=== PATIENT | male | born 1965 | race Two or more races ===

== ENCOUNTER 2017-06-15 13:36 | Inpatient (IN) | payer MEDICAID, OTHER ==
[~2017-06-15] VITALS: Ht 182.9 cm; Wt 88.7 kg
[2017-06-15] MEDS ORDERED: LORA10TA3 PO (13:48)
[2017-06-15] MEDS ORDERED: OXCA300T PO (14:03)
[2017-06-15] MEDS ORDERED: HALO2TAB PO (14:03)
[2017-06-15] MEDS ORDERED: GABA-586 PO (14:03)
[2017-06-15] MEDS ORDERED: ACET325T9 PO (14:03)
[2017-06-15] MEDS ORDERED: OLAN15TA3 PO (14:03)
[2017-06-15] MEDS ORDERED: DOCU100C28 PO (14:03)
[2017-06-15] MEDS ORDERED: OLAN5TAB5 PO (14:03)
[2017-06-15] MEDS ORDERED: OXCA600T PO (14:03)
[2017-06-15 16:59] VITALS: BP 113/72
[2017-06-15] MEDS: HALOPERIDOL 2 MG TABLET PO SCH (18:17)
[2017-06-15] MEDS ORDERED: ACETAMINOPHEN 325 MG TABLET PO PRN (18:30)
[2017-06-15] MEDS ORDERED: DOCUSATE SODIUM 100 MG CAPSULE PO PRN (18:30)
--- NOTE | 2017-06-15 19:04 | PDOC ---
Exam Note: Ronaldo Note: Please also refer to the separate dictated note~for this date of service dictated separately.~Patient seen individually. Discussed the patient with Nursing staff reviewed the chart.~Reviewed interim history and current functioning. Reviewed vital signs,~Labs/ Radiology~and current medications noted below. Continue current treatment with the changes noted in the dictated addendum note Assessment: Vital Signs: Vital Signs Date Time Temp Pulse Resp B/P (MAP) Pulse Ox O2 Delivery O2 Flow Rate FiO2 06/15/17 16:59 98.2 78 18 113/72 (86) 94 Current Medications: Meds: Current Medications Haloperidol (Haldol) 2 mg BID@0700,1900 PO Last administered on 06/15/17t 18: 17; Start 06/15/17 at 19:00 Olanzapine (ZyPREXA ZYDIS) 5 mg DAILY@1300 PO ; Start 06/16/17 at 13:00 Oxcarbazepine (Trileptal) 300 mg DAILY PO ; Start 06/16/17 at 09:00 Olanzapine (ZyPREXA) 15 mg QHS PO ; Start 06/15/17 at 21:00 Oxcarbazepine (Trileptal) 600 mg QHS PO ; Start 06/15/17 at 21:00 Acetaminophen (Tylenol) 650 mg PRN Q4HRS PRN PO PAIN / TEMP; Start 06/15/17 at 18:30 Docusate Sodium (Colace) 100 mg PRN Q12HR PRN PO CONSTIPATION; Start 06/15/17 at 18:30 Gabapentin (Neurontin) 300 mg TID PO ; Start 06/15/17 at 21:00 Active Scripts Active Reported Docusate Sodium 100 Mg Capsule 100 Mg PO PRN Q12HR PRN Tylenol (Acetaminophen) 325 Mg Tablet 650 Mg PO PRN Q4HRS PRN Gabapentin 300 Mg Capsule 300 Mg PO TID Haloperidol 2 Mg Tablet 2 Mg PO BID@ 0700,1900 Zyprexa Zydis (Olanzapine) 5 Mg Tab.rapdis 5 Mg PO DAILY@1300 Zyprexa (Olanzapine) 15 Mg Tablet 15 Mg PO QHS Oxcarbazepine 300 Mg Tablet 300 Mg PO DAILY Oxcarbazepine 600 Mg Tablet 600 Mg PO QHS Loratadine 10 Mg Tablet 10 Mg PO DAILY I have reviewed the current psychotropics carefully including drug interactions. Risk benefit ratio favors no change other than as noted in my dictated progress note. Diagnosis: Problems: (1) Bipolar affective, mixed, sev w/ psych (2) Hepatitis C (3) Impulse control disorder (4) Schizoaffective disorder, chronic condition with acute exacerbation (5) Schizophrenia, disorganized, subchronic with acute exacerbation ERICKA RECINOS MD Jun 15, 2017 19:04
[2017-06-15] MEDS: GABAPENTIN 300 MG CAPSULE. PO SCH (19:42)
[2017-06-15] MEDS: OLANZapine 7.5 MG TABLET PO SCH (19:43)
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
[2017-06-16] MEDS: HALOPERIDOL 2 MG TABLET PO SCH ×2 (05:53→17:08)
[2017-06-16 06:08] VITALS: BP 126/63
[2017-06-16 07:32] LABS: BASO % 0 % (0-3); EOS # 0.3 x10^3/uL (0.0-0.7); EOS % 4 % (0-3); HEMATOCRIT 49.4 % (39.0-53.0); HEMOGLOBIN 17.1 g/dL (13.0-17.5); LYMPH # 1.8 x10^3/uL (1.0-4.8); LYMPH % 23 % (24-48); MEAN CORPUSCULAR HEMOGLOBIN 32 pg (25-35); MEAN CORPUSCULAR HGB CONC 35 g/dL (31-37); MEAN CORPUSCULAR VOLUME 93 fL (79-100); MONO # 0.7 x10^3/uL (0.0-1.1); MONO % 9 % (0-9); NEUT # 5.1 x10^3uL (1.8-7.7); NEUT % 65 % (31-73); PLATELET COUNT 142 x10^3/uL (140-400); RED BLOOD COUNT 5.31 x10^6/uL (4.30-5.70); RED CELL DISTRIBUTION WIDTH 13.1 % (11.5-14.5); WHITE BLOOD COUNT 7.9 x10^3/uL (4.0-11.0)
[2017-06-16 07:45] LABS: ALBUMIN 3.6 g/dL (3.4-5.0); ALBUMIN/GLOBULIN RATIO 0.9 (1.0-1.7); CALCIUM 8.3 mg/dL (8.5-10.1); CREATININE 0.9 mg/dL (0.7-1.3); GFR 88.3; MAGNESIUM 1.7 mg/dL (1.8-2.4); POTASSIUM 3.7 mmol/L (3.5-5.1); TOTAL BILIRUBIN 0.9 mg/dL (0.2-1.0); TOTAL PROTEIN 7.5 g/dL (6.4-8.2)
[2017-06-16] MEDS: GABAPENTIN 300 MG CAPSULE. PO SCH ×3 (09:39→19:11)
[2017-06-16 10:16] LABS: THYROID STIM HORMONE (TSH) 1.543 uIU/mL (0.358-3.740)
[2017-06-16] MEDS: MAGNESIUM OXIDE 400 MG TABLET PO SCH (11:54)
[2017-06-16 12:16] LABS: BACTERIA,URINE 0 /HPF (0-FEW); BILIRUBIN,URINE NEG (NEG); CLARITY,URINE CLEAR; COLOR,URINE YELLOW; GLUCOSE,URINE NEG (NEG); NITRITE,URINE NEG (NEG); RBC,URINE 0 /HPF (0-2); SQUAMOUS EPITHELIAL CELL,UR OCC /LPF; UROBILINOGEN,URINE 0.2 mg/dL (0.2 mg/dL); WBC,URINE 0 /HPF (0-4)
[2017-06-16 15:58] VITALS: BP 123/80
[2017-06-16] MEDS: OLANZapine 7.5 MG TABLET PO SCH (19:11)
--- NOTE | 2017-06-16 20:23 | PDOC ---
Exam Note: Ronaldo Note: Please also refer to the separate dictated note~for this date of service dictated separately.~Patient seen individually. Discussed the patient with Nursing staff reviewed the chart.~Reviewed interim history and current functioning. Reviewed vital signs,~Labs/ Radiology~and current medications noted below. Continue current treatment with the changes noted in the dictated addendum note Assessment: Vital Signs: Vital Signs Date Time Temp Pulse Resp B/P (MAP) Pulse Ox O2 Delivery O2 Flow Rate FiO2 06/16/17 15:58 98.5 82 20 123/80 (94) 91 I&O Intake and Output 06/16/17 07:00 Intake Total 480 ml Balance 480 ml Intake Oral 480 ml Labs: Laboratory Tests Test 06/16/17 07:13 06/16/17 12:00 White Blood Count 7.9 x10^3/uL (4.0-11.0) Red Blood Count 5.31 x10^6/uL (4.30-5.70) Hemoglobin 17.1 g/dL (13.0-17.5) Hematocrit 49.4 % (39.0-53.0) Mean Corpuscular Volume 93 fL (79-100) Mean Corpuscular Hemoglobin 32 pg (25-35) Mean Corpuscular Hemoglobin Concent 35 g/dL (31-37) Red Cell Distribution Width 13.1 % (11.5-14.5) Platelet Count 142 x10^3/uL (140-400) Neutrophils (%) (Auto) 65 % (31-73) Lymphocytes (%) (Auto) 23 % (24-48) L Monocytes (%) (Auto) 9 % (0-9) Eosinophils (%) (Auto) 4 % (0-3) H Basophils (%) (Auto) 0 % (0-3) Neutrophils # (Auto) 5.1 x10^3uL (1.8-7.7) Lymphocytes # (Auto) 1.8 x10^3/uL (1.0-4.8) Monocytes # (Auto) 0.7 x10^3/uL (0.0-1.1) Eosinophils # (Auto) 0.3 x10^3/uL (0.0-0.7) Basophils # (Auto) 0.0 x10^3/uL (0.0-0.2) Sodium Level 139 mmol/L (136-145) Potassium Level 3.7 mmol/L (3.5-5.1) Chloride Level 104 mmol/L (98-107) Carbon Dioxide Level 27 mmol/L (21-32) Anion Gap 8 (6-14) Blood Urea Nitrogen 11 mg/dL (8-26) Creatinine 0.9 mg/dL (0.7-1.3) Estimated GFR (Cockcroft-Gault) 88.3 BUN/Creatinine Ratio 12 (6-20) Glucose Level 141 mg/dL (70-99) H Calcium Level 8.3 mg/dL (8.5-10.1) L Magnesium Level 1.7 mg/dL (1.8-2.4) L Iron Level 172 ug/dL (65-175) Total Iron Binding Capacity 279 ug/dL (250-450) Iron Saturation 62 % (15-34) H Total Bilirubin 0.9 mg/dL (0.2-1.0) Aspartate Amino Transferase (AST) 39 U/L (15-37) H Alanine Aminotransferase (ALT) 71 U/L (16-63) H Alkaline Phosphatase 85 U/L (46-116) Total Protein 7.5 g/dL (6.4-8.2) Albumin 3.6 g/dL (3.4-5.0) Albumin/Globulin Ratio 0.9 (1.0-1.7) L Triglycerides Level 64 mg/dL (0-150) Cholesterol Level 143 mg/dL (0-200) LDL Cholesterol, Calculated 75 mg/dL (0-100) VLDL Cholesterol, Calculated 12 mg/dL (0-40) Non-HDL Cholesterol Calculated 87 mg/dL (0-129) HDL Cholesterol 56 mg/dL (40-60) Cholesterol/HDL Ratio 2.0 Thyroid Stimulating Hormone (TSH) 1.543 uIU/mL (0.358-3.740) Rapid Plasma Reagin Non reactive (Non Reactive) Urine Collection Type Unknown Urine Color Yellow Urine Clarity Clear Urine pH 7.0 Urine Specific [place] 1.015 Urine Protein Neg (NEG-TRACE) Urine Glucose (UA) Neg mg/dL (NEG) Urine Ketones (Stick) Neg mg/dL (NEG) Urine Blood Neg (NEG) Urine Nitrite Neg (NEG) Urine Bilirubin Neg (NEG) Urine Urobilinogen Dipstick 0.2 mg/dL (0.2 mg/dL) Urine Leukocyte Esterase Neg (NEG) Urine RBC 0 /HPF (0-2) Urine WBC 0 /HPF (0-4) Urine Squamous Epithelial Cells Occ /LPF Urine Bacteria 0 /HPF (0-FEW) Urine Mucus Slight /LPF Current Medications: Meds: Current Medications Haloperidol (Haldol) 2 mg BID@0700,1900 PO Last administered on 06/16/17 17: 08; Start 06/15/17 at 19:00 Olanzapine (ZyPREXA ZYDIS) 5 mg DAILY@1300 PO Last administered on 06/16/17 13:32; Start 06/16/17 at 13:00 Oxcarbazepine (Trileptal) 300 mg DAILY PO Last administered on 06/16/17 09:39 ; Start 06/16/17 at 09:00 Olanzapine (ZyPREXA) 15 mg QHS PO Last administered on 06/16/17 19:11; Start 06/15/17 at 21:00 Oxcarbazepine (Trileptal) 600 mg QHS PO Last administered on 06/16/17 19:11; Start 06/15/17 at 21:00 Acetaminophen (Tylenol) 650 mg PRN Q4HRS PRN PO PAIN / TEMP; Start 06/15/17 at 18:30 Docusate Sodium (Colace) 100 mg PRN Q12HR PRN PO CONSTIPATION; Start 06/15/17 at 18:30 Gabapentin (Neurontin) 300 mg TID PO Last administered on 06/16/17 19:11; Start 06/15/17 at 21:00 Magnesium Oxide (Magnesium Oxide) 400 mg DAILYBFRLUN PO Last administered on 11:54; Start 06/16/17 at 11:30 Active Scripts Active Reported Docusate Sodium 100 Mg Capsule 100 Mg PO PRN Q12HR PRN Tylenol (Acetaminophen) 325 Mg Tablet 650 Mg PO PRN Q4HRS PRN Gabapentin 300 Mg Capsule 300 Mg PO TID Haloperidol 2 Mg Tablet 2 Mg PO BID@ 0700,1900 Zyprexa Zydis (Olanzapine) 5 Mg Tab.rapdis 5 Mg PO DAILY@1300 Zyprexa (Olanzapine) 15 Mg Tablet 15 Mg PO QHS Oxcarbazepine 300 Mg Tablet 300 Mg PO DAILY Oxcarbazepine 600 Mg Tablet 600 Mg PO QHS Loratadine 10 Mg Tablet 10 Mg PO DAILY I have reviewed the current psychotropics carefully including drug interactions. Risk benefit ratio favors no change other than as noted in my dictated progress note. Diagnosis: Problems: (1) Schizophrenia, disorganized, subchronic with acute exacerbation (2) Schizoaffective disorder, chronic condition with acute exacerbation (3) Bipolar affective, mixed, sev w/ psych (4) Impulse control disorder ERICKA RECINOS MD Jun 16, 2017 20:23
[2017-06-17 02:06] LABS: HEMOGLOBIN A1C 5.3 % (4.8-5.6)
[2017-06-17 06:07] LABS: THYROXINE 7.1 ug/dL (4.5-12.0)
[2017-06-17 06:17] VITALS: BP 108/68
[2017-06-17] MEDS: HALOPERIDOL 2 MG TABLET PO SCH ×2 (06:20→18:23)
[2017-06-17] MEDS: GABAPENTIN 300 MG CAPSULE. PO SCH ×3 (08:09→19:51)
[2017-06-17] MEDS: MAGNESIUM OXIDE 400 MG TABLET PO SCH (11:53)
[2017-06-17 16:06] VITALS: BP 167/71
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
[2017-06-17] MEDS: OLANZapine 7.5 MG TABLET PO SCH (19:51)
--- NOTE | 2017-06-17 20:02 | PDOC ---
Exam Note: Ronaldo Note: Please also refer to the separate dictated note~for this date of service dictated separately.~Patient seen individually. Discussed the patient with Nursing staff reviewed the chart.~Reviewed interim history and current functioning. Reviewed vital signs,~Labs/ Radiology~and current medications noted below. Continue current treatment with the changes noted in the dictated addendum note Assessment: Vital Signs: Vital Signs Date Time Temp Pulse Resp B/P (MAP) Pulse Ox O2 Delivery O2 Flow Rate FiO2 06/17/17 16:06 97.1 76 20 167/71 (103) 92 06/17/17 06:17 Room Air I&O Intake and Output 06/17/17 07:00 Intake Total 1200 ml Balance 1200 ml Intake Oral 1200 ml Current Medications: Meds: Current Medications Haloperidol (Haldol) 2 mg BID@0700,1900 PO Last administered on 06/17/17 18:23 ; Start 06/15/17 at 19:00 Olanzapine (ZyPREXA ZYDIS) 5 mg DAILY@1300 PO Last administered on 06/17/17 13: 04; Start 06/16/17 at 13:00 Oxcarbazepine (Trileptal) 300 mg DAILY PO Last administered on 06/17/17 08:09; Start 06/16/17 at 09:00; Stop 06/17/17 at 19:05; Status DC Olanzapine (ZyPREXA) 15 mg QHS PO Last administered on 06/17/17 19:51; Start 06/15/17 at 21:00 Oxcarbazepine (Trileptal) 600 mg QHS PO Last administered on 06/16/17t 19:11; Start 06/15/17 at 21:00; Stop 06/17/17 at 19:05; Status DC Acetaminophen (Tylenol) 650 mg PRN Q4HRS PRN PO PAIN / TEMP; Start 06/15/17 at 18:30 Docusate Sodium (Colace) 100 mg PRN Q12HR PRN PO CONSTIPATION; Start 06/15/17 at 18:30 Gabapentin (Neurontin) 300 mg TID PO Last administered on 06/17/17 19:51; Start 06/15/17 at 21:00 Magnesium Oxide (Magnesium Oxide) 400 mg DAILYBFRLUN PO Last administered on 1/ 1/18at 11:53; Start 06/16/17 at 11:30 Oxcarbazepine (Trileptal) 600 mg BID PO Last administered on 06/17/17at 19:51; Start 06/17/17 at 21:00 Active Scripts Active Reported Docusate Sodium 100 Mg Capsule 100 Mg PO PRN Q12HR PRN Tylenol (Acetaminophen) 325 Mg Tablet 650 Mg PO PRN Q4HRS PRN Gabapentin 300 Mg Capsule 300 Mg PO TID Haloperidol 2 Mg Tablet 2 Mg PO BID@ 0700,1900 Zyprexa Zydis (Olanzapine) 5 Mg Tab.rapdis 5 Mg PO DAILY@1300 Zyprexa (Olanzapine) 15 Mg Tablet 15 Mg PO QHS Oxcarbazepine 300 Mg Tablet 300 Mg PO DAILY Oxcarbazepine 600 Mg Tablet 600 Mg PO QHS Loratadine 10 Mg Tablet 10 Mg PO DAILY I have reviewed the current psychotropics carefully including drug interactions. Risk benefit ratio favors no change other than as noted in my dictated progress note. Diagnosis: Problems: (1) Impulse control disorder (2) Bipolar affective, mixed, sev w/ psych (3) Hepatitis C (4) Schizoaffective disorder, chronic condition with acute exacerbation (5) Schizophrenia, disorganized, subchronic with acute exacerbation ERICKA RECINOS MD Jun 17, 2017 20:02
[2017-06-18] MEDS ORDERED: LORazepam 1 MG TABLET PO ONE (04:15)
[2017-06-18] MEDS ORDERED: HALOPERIDOL 5 MG TABLET PO ONE (04:15)
[2017-06-18] MEDS: HALOPERIDOL 2 MG TABLET PO SCH ×2 (07:08→19:01)
--- NOTE | 2017-06-18 08:51 | PN ---
DATE: 06/17/2017 This late entry, 06/17/2017, covers elements not covered in my initial note of 06/17/2016. SUBJECTIVE: Per nursing report, the patient comes out for meals, but otherwise withdrawn to his room. He was getting agitated the evening of 06/17/2017 after I visited with him. He was demanding extra food even though he just had his supper, appeared more paranoid and labile in his mood. At the time of this dictation, which is on 06/18/2017, I was called around 1:30 a.m. this morning and around 4:00 a.m. The patient was getting increasingly agitated, paranoid, unmanageable, threatening staff. We added Haldol 5 mg, Ativan 1 mg p.o. x 1 plus Zyprexa p.r.n. As noted below, previously last evening, Trileptal was increased to 600 mg twice a day as well as a mood stabilizer. REVIEW OF SYSTEMS: No CV, , pulmonary, eye, ENT system symptoms on review. Reliability varies. MENTAL STATUS EXAM: Oriented to himself and situation. Speech coherent, rapid at times. Abstraction fair, computation impaired, language function intact. Mood and affect remains labile. LABORATORY DATA: Reviewed. IMPRESSION: Schizophrenia, chronic paranoid with acute exacerbation; schizoaffective disorder, bipolar type, mixed with psychotic features. Rest unchanged. PLAN: Trileptal increased to 600 mg twice a day. Rest changes as noted above. Reviewed drug interactions at length. Risk/benefit ratio favors no further change for now. ERICKA RECINOS MD DR: AMEE/tunde JOB#: [id number] / [id number]
[2017-06-18] MEDS: GABAPENTIN 300 MG CAPSULE. PO SCH ×3 (09:31→19:52)
--- NOTE | 2017-06-18 10:27 | PN ---
DATE: 06/16/2017 This is a late entry, date of service is 06/16/2017 covers elements not covered in my initial note of 06/16/2017. SUBJECTIVE: The patient was seen individually evening of 06/16/2017. Discussed with nursing staff, reviewed the chart. Overall, per nursing report, the patient has been somewhat withdrawn, compliant with medications, but appears paranoid. He has not been aggressive. REVIEW OF SYSTEMS: No CV, , pulmonary, eye, ENT system symptoms on review. MENTAL STATUS EXAM: Oriented to himself. Insight, judgment, recent memory is impaired. Language function is intact. Attention span is short. Mood and affect remains withdrawn. LABORATORY DATA: Reviewed. IMPRESSION: Schizophrenia, chronic, undifferentiated versus paranoid with acute exacerbation; Cook's disease; schizoaffective disorder, bipolar type, mixed with psychotic features. PLAN: Continue Tegretol mg a.m., Zyprexa 15 mg at bedtime plus 5 mg in the afternoon, Haldol 2 mg b.i.d., Neurontin 300 mg t.i.d. Had considered adding Depakote as a mood stabilizer in place of the Trileptal, but the patient's liver enzymes are somewhat elevated probably due to hepatitis C and I will avoid this addition of Depakote. May need to increase Trileptal and perhaps the Haldol if psychotic symptoms are evident, will give it another 24 hours and decide. MAN Snow RECINOS MD DR: AMEE/tunde JOB#: [id number] / [id number]
[2017-06-18] MEDS: MAGNESIUM OXIDE 400 MG TABLET PO SCH (11:43)
[2017-06-18 15:59] VITALS: BP 97/63
[2017-06-18] MEDS: OLANZapine 7.5 MG TABLET PO SCH (19:52)
--- NOTE | 2017-06-18 20:12 | PDOC ---
Exam Note: Ronaldo Note: Please also refer to the separate dictated note~for this date of service dictated separately.~Patient seen individually. Discussed the patient with Nursing staff reviewed the chart.~Reviewed interim history and current functioning. Reviewed vital signs,~Labs/ Radiology~and current medications noted below. Continue current treatment with the changes noted in the dictated addendum note Assessment: Vital Signs: Vital Signs Date Time Temp Pulse Resp B/P (MAP) Pulse Ox O2 Delivery O2 Flow Rate FiO2 06/18/17 15:59 98.6 61 20 97/63 (74) 93 06/17/17 06:17 Room Air I&O Intake and Output 06/18/17 07:00 Intake Total 1440 ml Balance 1440 ml Intake Oral 1440 ml Current Medications: Meds: Current Medications Haloperidol (Haldol) 2 mg BID@0700,1900 PO Last administered on 06/18/17 19:01 ; Start 06/15/17 at 19:00 Olanzapine (ZyPREXA ZYDIS) 5 mg DAILY@1300 PO Last administered on 06/18/17 13: 57; Start 06/16/17 at 13:00 Oxcarbazepine (Trileptal) 300 mg DAILY PO Last administered on 06/17/17 08:09; Start 06/16/17 at 09:00; Stop 06/17/17 at 19:05; Status DC Olanzapine (ZyPREXA) 15 mg QHS PO Last administered on 06/18/17 19:52; Start 06/15/17 at 21:00 Oxcarbazepine (Trileptal) 600 mg QHS PO Last administered on 06/16/17t 19:11; Start 06/15/17 at 21:00; Stop 06/17/17 at 19:05; Status DC Acetaminophen (Tylenol) 650 mg PRN Q4HRS PRN PO PAIN / TEMP; Start 06/15/17 at 18:30 Docusate Sodium (Colace) 100 mg PRN Q12HR PRN PO CONSTIPATION; Start 06/15/17 at 18:30 Gabapentin (Neurontin) 300 mg TID PO Last administered on 06/18/17 19:52; Start 06/15/17 at 21:00 Magnesium Oxide (Magnesium Oxide) 400 mg DAILYBFRLUN PO Last administered on 1/ 2/18at 11:43; Start 06/16/17 at 11:30 Oxcarbazepine (Trileptal) 600 mg BID PO Last administered on 06/18/17at 19:52; Start 06/17/17 at 21:00 Haloperidol (Haldol) 5 mg 1X ONCE PO Last administered on 06/18/17at 04:34; Start 06/18/17 at 04:15; Stop 06/18/17 at 04:20; Status DC Lorazepam (Ativan) 1 mg 1X ONCE PO Last administered on 06/18/17at 04:34; Start 06/18/17 at 04:15; Stop 06/18/17 at 04:20; Status DC Olanzapine (ZyPREXA ZYDIS) 5 mg PRN Q2HR PRN PO ANXIETY / AGITATION; Start 06/18 at 04:15 Active Scripts Active Reported Docusate Sodium 100 Mg Capsule 100 Mg PO PRN Q12HR PRN Tylenol (Acetaminophen) 325 Mg Tablet 650 Mg PO PRN Q4HRS PRN Gabapentin 300 Mg Capsule 300 Mg PO TID Haloperidol 2 Mg Tablet 2 Mg PO BID@ 0700,1900 Zyprexa Zydis (Olanzapine) 5 Mg Tab.rapdis 5 Mg PO DAILY@1300 Zyprexa (Olanzapine) 15 Mg Tablet 15 Mg PO QHS Oxcarbazepine 300 Mg Tablet 300 Mg PO DAILY Oxcarbazepine 600 Mg Tablet 600 Mg PO QHS Loratadine 10 Mg Tablet 10 Mg PO DAILY I have reviewed the current psychotropics carefully including drug interactions. Risk benefit ratio favors no change other than as noted in my dictated progress note. Diagnosis: Problems: (1) Impulse control disorder (2) Bipolar affective, mixed, sev w/ psych (3) Hepatitis C (4) Schizoaffective disorder, chronic condition with acute exacerbation (5) Schizophrenia, disorganized, subchronic with acute exacerbation ERICKA RECINOS MD Jun 18, 2017 20:12
[2017-06-19] MEDS: HALOPERIDOL 2 MG TABLET PO SCH ×2 (05:27→17:11)
[2017-06-19 05:43] VITALS: BP 99/64
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
[2017-06-19] MEDS: MAGNESIUM OXIDE 400 MG TABLET PO SCH ×2 (09:29→11:21)
[2017-06-19] MEDS: GABAPENTIN 300 MG CAPSULE. PO SCH ×4 (09:29→19:54)
[2017-06-19] MEDS ORDERED: HALOPERIDOL 2 MG TABLET PO ONE (10:00)
[2017-06-19] MEDS: risperiDONE 0.5 MG TABLET. PO SCH (13:17)
[2017-06-19] MEDS: CHOLECALCIFEROL (VITAMIN D3) 50,000 UNIT CAPSULE PO SCH (17:11)
[2017-06-19] MEDS: risperiDONE 2 MG TABLET. PO SCH (19:55)
--- NOTE | 2017-06-19 20:07 | PDOC ---
Exam Note: Ronaldo Note: Please also refer to the separate dictated note~for this date of service dictated separately.~Patient seen individually. Discussed the patient with Nursing staff reviewed the chart.~Reviewed interim history and current functioning. Reviewed vital signs,~Labs/ Radiology~and current medications noted below. Continue current treatment with the changes noted in the dictated addendum note Assessment: Vital Signs: Vital Signs Date Time Temp Pulse Resp B/P (MAP) Pulse Ox O2 Delivery O2 Flow Rate FiO2 06/19/17 16:19 98.4 88 20 93 06/19/17 05:43 99/64 (76) 06/17/17 06:17 Room Air I&O Intake and Output 06/19/17 07:00 Intake Total 600 ml Balance 600 ml Intake Oral 600 ml Current Medications: Meds: Current Medications Haloperidol (Haldol) 2 mg BID@0700,1900 PO Last administered on 06/19/17 17:11 ; Start 06/15/17 at 19:00 Olanzapine (ZyPREXA ZYDIS) 5 mg DAILY@1300 PO Last administered on 06/18/17 13: 57; Start 06/16/17 at 13:00; Stop 06/19/17 at 12:43; Status DC Oxcarbazepine (Trileptal) 300 mg DAILY PO Last administered on 06/17/17 08:09; Start 06/16/17 at 09:00; Stop 06/17/17 at 19:05; Status DC Olanzapine (ZyPREXA) 15 mg QHS PO Last administered on 06/18/17 19:52; Start 06/15/17 at 21:00; Stop 06/19/17 at 12:43; Status DC Oxcarbazepine (Trileptal) 600 mg QHS PO Last administered on 06/16/17t 19:11; Start 06/15/17 at 21:00; Stop 06/17/17 at 19:05; Status DC Acetaminophen (Tylenol) 650 mg PRN Q4HRS PRN PO PAIN / TEMP; Start 06/15/17 at 18:30 Docusate Sodium (Colace) 100 mg PRN Q12HR PRN PO CONSTIPATION; Start 06/15/17 at 18:30 Gabapentin (Neurontin) 300 mg TID PO Last administered on 06/19/17 19:54; Start 06/15/17 at 21:00 Magnesium Oxide (Magnesium Oxide) 400 mg DAILYBFRLUN PO Last administered on 06/19/17at 11:21; Start 06/16/17 at 11:30 Oxcarbazepine (Trileptal) 600 mg BID PO Last administered on 06/19/17at 19:50; Start 06/17/17 at 21:00 Haloperidol (Haldol) 5 mg 1X ONCE PO Last administered on 06/18/17at 04:34; Start 06/18/17 at 04:15; Stop 06/18/17 at 04:20; Status DC Lorazepam (Ativan) 1 mg 1X ONCE PO Last administered on 06/18/17 04:34; Start 06/18/17 at 04:15; Stop 06/18/17 at 04:20; Status DC Olanzapine (ZyPREXA ZYDIS) 5 mg PRN Q2HR PRN PO ANXIETY / AGITATION Last administered on 06/19/17at 19:55; Start 06/18/17 at 04:15 Haloperidol (Haldol) 2 mg 1X ONCE PO Last administered on 06/19/17at 09:58; Start 06/19/17 at 10:00; Stop 06/19/17 at 10:01; Status DC Risperidone (RisperDAL) 0.5 mg BID92 PO Last administered on 06/19/17at 13:17; Start 06/19/17 at 14:00 Risperidone (RisperDAL) 2 mg HS PO Last administered on 06/19/17at 19:55; Start 06/19/17 at 21:00 Vitamin D (Vitamin D3) 50,000 unit WEEKLY PO Last administered on 06/19/17at 17: 11; Start 06/19/17 at 16:00 Active Scripts Active Reported Docusate Sodium 100 Mg Capsule 100 Mg PO PRN Q12HR PRN Tylenol (Acetaminophen) 325 Mg Tablet 650 Mg PO PRN Q4HRS PRN Gabapentin 300 Mg Capsule 300 Mg PO TID Haloperidol 2 Mg Tablet 2 Mg PO BID@ 0700,1900 Zyprexa Zydis (Olanzapine) 5 Mg Tab.rapdis 5 Mg PO DAILY@1300 Zyprexa (Olanzapine) 15 Mg Tablet 15 Mg PO QHS Oxcarbazepine 300 Mg Tablet 300 Mg PO DAILY Oxcarbazepine 600 Mg Tablet 600 Mg PO QHS Loratadine 10 Mg Tablet 10 Mg PO DAILY I have reviewed the current psychotropics carefully including drug interactions. Risk benefit ratio favors no change other than as noted in my dictated progress note. Diagnosis: Problems: (1) Impulse control disorder (2) Bipolar affective, mixed, sev w/ psych (3) Hepatitis C (4) Schizoaffective disorder, chronic condition with acute exacerbation (5) Schizophrenia, disorganized, subchronic with acute exacerbation ERICKA RECINOS MD Jun 19, 2017 20:07
[2017-06-20 06:05] VITALS: BP 110/66
[2017-06-20] MEDS: HALOPERIDOL 2 MG TABLET PO SCH ×2 (06:45→19:32)
[2017-06-20] MEDS: risperiDONE 0.5 MG TABLET. PO SCH ×2 (08:37→14:05)
[2017-06-20] MEDS: GABAPENTIN 300 MG CAPSULE. PO SCH ×3 (08:37→19:31)
--- NOTE | 2017-06-20 12:52 | EKG ---
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
[2017-06-20] MEDS: MAGNESIUM OXIDE 400 MG TABLET PO SCH (14:04)
[2017-06-20] MEDS: risperiDONE 2 MG TABLET. PO SCH (19:31)
--- NOTE | 2017-06-20 20:04 | PDOC ---
Exam Note: Ronaldo Note: Please also refer to the separate dictated note~for this date of service dictated separately.~Patient seen individually. Discussed the patient with Nursing staff reviewed the chart.~Reviewed interim history and current functioning. Reviewed vital signs,~Labs/ Radiology~and current medications noted below. Continue current treatment with the changes noted in the dictated addendum note Assessment: Vital Signs: Vital Signs Date Time Temp Pulse Resp B/P (MAP) Pulse Ox O2 Delivery O2 Flow Rate FiO2 06/20/17 06:05 97.7 59 16 110/66 (81) 96 Room Air I&O Intake and Output 06/20/17 07:00 Intake Total 1080 ml Balance 1080 ml Intake Oral 1080 ml Current Medications: Meds: Current Medications Haloperidol (Haldol) 2 mg BID@0700,1900 PO Last administered on 06/20/17 19:32 ; Start 06/15/17 at 19:00 Olanzapine (ZyPREXA ZYDIS) 5 mg DAILY@1300 PO Last administered on 06/18/17 13: 57; Start 06/16/17 at 13:00; Stop 06/19/17 at 12:43; Status DC Oxcarbazepine (Trileptal) 300 mg DAILY PO Last administered on 06/17/17 08:09; Start 06/16/17 at 09:00; Stop 06/17/17 at 19:05; Status DC Olanzapine (ZyPREXA) 15 mg QHS PO Last administered on 06/18/17 19:52; Start 06/15/17 at 21:00; Stop 06/19/17 at 12:43; Status DC Oxcarbazepine (Trileptal) 600 mg QHS PO Last administered on 06/16/17t 19:11; Start 06/15/17 at 21:00; Stop 06/17/17 at 19:05; Status DC Acetaminophen (Tylenol) 650 mg PRN Q4HRS PRN PO PAIN / TEMP; Start 06/15/17 at 18:30 Docusate Sodium (Colace) 100 mg PRN Q12HR PRN PO CONSTIPATION; Start 06/15/17 at 18:30 Gabapentin (Neurontin) 300 mg TID PO Last administered on 06/20/17 19:31; Start 06/15/17 at 21:00 Magnesium Oxide (Magnesium Oxide) 400 mg DAILYBFRLUN PO Last administered on 06/20/17at 14:04; Start 06/16/17 at 11:30 Oxcarbazepine (Trileptal) 600 mg BID PO Last administered on 06/20/17at 08:37; Start 06/17/17 at 21:00; Stop 06/20/17 at 18:34; Status DC Haloperidol (Haldol) 5 mg 1X ONCE PO Last administered on 06/18/17at 04:34; Start 06/18/17 at 04:15; Stop 06/18/17 at 04:20; Status DC Lorazepam (Ativan) 1 mg 1X ONCE PO Last administered on 06/18/17at 04:34; Start 06/18/17 at 04:15; Stop 06/18/17 at 04:20; Status DC Olanzapine (ZyPREXA ZYDIS) 5 mg PRN Q2HR PRN PO ANXIETY / AGITATION Last administered on 06/20/17at 15:33; Start 06/18/17 at 04:15 Haloperidol (Haldol) 2 mg 1X ONCE PO Last administered on 06/19/17at 09:58; Start 06/19/17 at 10:00; Stop 06/19/17 at 10:01; Status DC Risperidone (RisperDAL) 0.5 mg BID92 PO Last administered on 06/20/17at 14:05; Start 06/19/17 at 14:00 Risperidone (RisperDAL) 2 mg HS PO Last administered on 06/20/17 19:31; Start 06/19/17 at 21:00 Vitamin D (Vitamin D3) 50,000 unit WEEKLY PO Last administered on 06/19/17at 17: 11; Start 06/19/17 at 16:00 Oxcarbazepine (Trileptal) 600 mg DAILY PO ; Start 06/21/17 at 09:00 Oxcarbazepine (Trileptal) 900 mg HS PO Last administered on 06/20/17 19:31; Start 06/20/17 at 21:00 Active Scripts Active Reported Docusate Sodium 100 Mg Capsule 100 Mg PO PRN Q12HR PRN Tylenol (Acetaminophen) 325 Mg Tablet 650 Mg PO PRN Q4HRS PRN Gabapentin 300 Mg Capsule 300 Mg PO TID Haloperidol 2 Mg Tablet 2 Mg PO BID@ 0700,1900 Zyprexa Zydis (Olanzapine) 5 Mg Tab.rapdis 5 Mg PO DAILY@1300 Zyprexa (Olanzapine) 15 Mg Tablet 15 Mg PO QHS Oxcarbazepine 300 Mg Tablet 300 Mg PO DAILY Oxcarbazepine 600 Mg Tablet 600 Mg PO QHS Loratadine 10 Mg Tablet 10 Mg PO DAILY I have reviewed the current psychotropics carefully including drug interactions. Risk benefit ratio favors no change other than as noted in my dictated progress note. Diagnosis: Problems: (1) Impulse control disorder (2) Bipolar affective, mixed, sev w/ psych (3) Hepatitis C (4) Schizoaffective disorder, chronic condition with acute exacerbation (5) Schizophrenia, disorganized, subchronic with acute exacerbation ERICKA RECINOS MD Jun 20, 2017 20:04
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
[2017-06-21 05:44] VITALS: BP 104/56
[2017-06-21] MEDS: HALOPERIDOL 2 MG TABLET PO SCH ×2 (06:43→19:20)
[2017-06-21] MEDS: GABAPENTIN 300 MG CAPSULE. PO SCH ×3 (09:42→19:19)
[2017-06-21] MEDS: risperiDONE 0.5 MG TABLET. PO SCH ×2 (09:42→14:47)
[2017-06-21] MEDS: MAGNESIUM OXIDE 400 MG TABLET PO SCH (11:42)
[2017-06-21 15:51] VITALS: BP 109/88
[2017-06-21] MEDS: risperiDONE 2 MG TABLET. PO SCH (19:19)
--- NOTE | 2017-06-21 20:17 | PDOC ---
Exam Note: Ronaldo Note: Please also refer to the separate dictated note~for this date of service dictated separately.~Patient seen individually. Discussed the patient with Nursing staff reviewed the chart.~Reviewed interim history and current functioning. Reviewed vital signs,~Labs/ Radiology~and current medications noted below. Continue current treatment with the changes noted in the dictated addendum note Assessment: Vital Signs: Vital Signs Date Time Temp Pulse Resp B/P (MAP) Pulse Ox O2 Delivery O2 Flow Rate FiO2 06/21/17 15:51 97.8 76 20 109/88 (95) 100 06/20/17 06:05 Room Air I&O Intake and Output 06/21/17 07:00 Intake Total 540 ml Balance 540 ml Intake Oral 540 ml Current Medications: Meds: Current Medications Haloperidol (Haldol) 2 mg BID@0700,1900 PO Last administered on 06/21/17 19:20 ; Start 06/15/17 at 19:00 Olanzapine (ZyPREXA ZYDIS) 5 mg DAILY@1300 PO Last administered on 06/18/17 13: 57; Start 06/16/17 at 13:00; Stop 06/19/17 at 12:43; Status DC Oxcarbazepine (Trileptal) 300 mg DAILY PO Last administered on 06/17/17 08:09; Start 06/16/17 at 09:00; Stop 06/17/17 at 19:05; Status DC Olanzapine (ZyPREXA) 15 mg QHS PO Last administered on 06/18/17 19:52; Start 06/15/17 at 21:00; Stop 06/19/17 at 12:43; Status DC Oxcarbazepine (Trileptal) 600 mg QHS PO Last administered on 06/16/17t 19:11; Start 06/15/17 at 21:00; Stop 06/17/17 at 19:05; Status DC Acetaminophen (Tylenol) 650 mg PRN Q4HRS PRN PO PAIN / TEMP; Start 06/15/17 at 18:30 Docusate Sodium (Colace) 100 mg PRN Q12HR PRN PO CONSTIPATION; Start 06/15/17 at 18:30 Gabapentin (Neurontin) 300 mg TID PO Last administered on 06/21/17 19:19; Start 06/15/17 at 21:00 Magnesium Oxide (Magnesium Oxide) 400 mg DAILYBFRLUN PO Last administered on 06/21/17at 11:42; Start 06/16/17 at 11:30 Oxcarbazepine (Trileptal) 600 mg BID PO Last administered on 06/20/17at 08:37; Start 06/17/17 at 21:00; Stop 06/20/17 at 18:34; Status DC Haloperidol (Haldol) 5 mg 1X ONCE PO Last administered on 06/18/17at 04:34; Start 06/18/17 at 04:15; Stop 06/18/17 at 04:20; Status DC Lorazepam (Ativan) 1 mg 1X ONCE PO Last administered on 06/18/17at 04:34; Start 06/18/17 at 04:15; Stop 06/18/17 at 04:20; Status DC Olanzapine (ZyPREXA ZYDIS) 5 mg PRN Q2HR PRN PO ANXIETY / AGITATION Last administered on 06/20/17at 15:33; Start 06/18/17 at 04:15 Haloperidol (Haldol) 2 mg 1X ONCE PO Last administered on 06/19/17at 09:58; Start 06/19/17 at 10:00; Stop 06/19/17 at 10:01; Status DC Risperidone (RisperDAL) 0.5 mg BID92 PO Last administered on 06/21/17at 14:47; Start 06/19/17 at 14:00 Risperidone (RisperDAL) 2 mg HS PO Last administered on 06/21/17 19:19; Start 06/19/17 at 21:00 Vitamin D (Vitamin D3) 50,000 unit WEEKLY PO Last administered on 06/19/17at 17: 11; Start 06/19/17 at 16:00 Oxcarbazepine (Trileptal) 600 mg DAILY PO Last administered on 06/21/17 09:44; Start 06/21/17 at 09:00 Oxcarbazepine (Trileptal) 900 mg HS PO Last administered on 06/21/17 19:20; Start 06/20/17 at 21:00 Fluvoxamine Maleate (Luvox) 25 mg QHS PO Last administered on 06/21/17 19:30; Start 1/5/18 at 21:00; Stop 06/23/17 at 20:59 Fluvoxamine Maleate (Luvox) 50 mg QHS PO ; Start 06/23/17 at 21:00 Active Scripts Active Reported Docusate Sodium 100 Mg Capsule 100 Mg PO PRN Q12HR PRN Tylenol (Acetaminophen) 325 Mg Tablet 650 Mg PO PRN Q4HRS PRN Gabapentin 300 Mg Capsule 300 Mg PO TID Haloperidol 2 Mg Tablet 2 Mg PO BID@ 0700,1900 Zyprexa Zydis (Olanzapine) 5 Mg Tab.rapdis 5 Mg PO DAILY@1300 Zyprexa (Olanzapine) 15 Mg Tablet 15 Mg PO QHS Oxcarbazepine 300 Mg Tablet 300 Mg PO DAILY Oxcarbazepine 600 Mg Tablet 600 Mg PO QHS Loratadine 10 Mg Tablet 10 Mg PO DAILY I have reviewed the current psychotropics carefully including drug interactions. Risk benefit ratio favors no change other than as noted in my dictated progress note. Diagnosis: Problems: (1) Impulse control disorder (2) Bipolar affective, mixed, sev w/ psych (3) Hepatitis C (4) Schizoaffective disorder, chronic condition with acute exacerbation (5) Schizophrenia, disorganized, subchronic with acute exacerbation ERICKA RECINOS MD Jun 21, 2017 20:17
[2017-06-22 05:44] VITALS: BP 124/71
[2017-06-22] MEDS: HALOPERIDOL 2 MG TABLET PO SCH ×2 (06:04→17:11)
[2017-06-22] MEDS: risperiDONE 0.5 MG TABLET. PO SCH ×2 (07:52→13:37)
[2017-06-22] MEDS: GABAPENTIN 300 MG CAPSULE. PO SCH ×3 (07:52→20:14)
[2017-06-22 09:35] LABS: BASO % 0 % (0-3); EOS # 0.2 x10^3/uL (0.0-0.7); EOS % 4 % (0-3); HEMATOCRIT 48.7 % (39.0-53.0); HEMOGLOBIN 16.8 g/dL (13.0-17.5); LYMPH # 1.2 x10^3/uL (1.0-4.8); LYMPH % 23 % (24-48); MEAN CORPUSCULAR HEMOGLOBIN 32 pg (25-35); MEAN CORPUSCULAR HGB CONC 34 g/dL (31-37); MEAN CORPUSCULAR VOLUME 94 fL (79-100); MONO # 0.4 x10^3/uL (0.0-1.1); MONO % 7 % (0-9); NEUT # 3.6 x10^3uL (1.8-7.7); NEUT % 66 % (31-73); PLATELET COUNT 183 x10^3/uL (140-400); RED CELL DISTRIBUTION WIDTH 13.2 % (11.5-14.5); WHITE BLOOD COUNT 5.4 x10^3/uL (4.0-11.0)
[2017-06-22 09:58] LABS: ALBUMIN 3.3 g/dL (3.4-5.0); ALBUMIN/GLOBULIN RATIO 0.9 (1.0-1.7); CALCIUM 8.7 mg/dL (8.5-10.1); CREATININE 0.8 mg/dL (0.7-1.3); GFR 101.1; MAGNESIUM 1.9 mg/dL (1.8-2.4); POTASSIUM 4.3 mmol/L (3.5-5.1); TOTAL BILIRUBIN 0.7 mg/dL (0.2-1.0); TOTAL PROTEIN 7.1 g/dL (6.4-8.2)
[2017-06-22] MEDS: MAGNESIUM OXIDE 400 MG TABLET PO SCH (13:37)
[2017-06-22 15:50] VITALS: BP 100/71
[2017-06-22] MEDS: risperiDONE 2 MG TABLET. PO SCH (20:15)
--- NOTE | 2017-06-22 22:16 | PDOC ---
Exam Note: Ronaldo Note: Please also refer to the separate dictated note~for this date of service dictated separately.~Patient seen individually. Discussed the patient with Nursing staff reviewed the chart.~Reviewed interim history and current functioning. Reviewed vital signs,~Labs/ Radiology~and current medications noted below. Continue current treatment with the changes noted in the dictated addendum note Assessment: Vital Signs: Vital Signs Date Time Temp Pulse Resp B/P (MAP) Pulse Ox O2 Delivery O2 Flow Rate FiO2 06/22/17 15:50 97.2 61 18 100/71 (81) 98 Room Air I&O Intake and Output 06/22/17 06:59 Intake Total 1320 ml Balance 1320 ml Intake Oral 1320 ml Labs: Laboratory Tests Test 06/22/17 09:24 White Blood Count 5.4 x10^3/uL (4.0-11.0) Red Blood Count 5.20 x10^6/uL (4.30-5.70) Hemoglobin 16.8 g/dL (13.0-17.5) Hematocrit 48.7 % (39.0-53.0) Mean Corpuscular Volume 94 fL (79-100) Mean Corpuscular Hemoglobin 32 pg (25-35) Mean Corpuscular Hemoglobin Concent 34 g/dL (31-37) Red Cell Distribution Width 13.2 % (11.5-14.5) Platelet Count 183 x10^3/uL (140-400) Neutrophils (%) (Auto) 66 % (31-73) Lymphocytes (%) (Auto) 23 % (24-48) L Monocytes (%) (Auto) 7 % (0-9) Eosinophils (%) (Auto) 4 % (0-3) H Basophils (%) (Auto) 0 % (0-3) Neutrophils # (Auto) 3.6 x10^3uL (1.8-7.7) Lymphocytes # (Auto) 1.2 x10^3/uL (1.0-4.8) Monocytes # (Auto) 0.4 x10^3/uL (0.0-1.1) Eosinophils # (Auto) 0.2 x10^3/uL (0.0-0.7) Basophils # (Auto) 0.0 x10^3/uL (0.0-0.2) Sodium Level 142 mmol/L (136-145) Potassium Level 4.3 mmol/L (3.5-5.1) Chloride Level 105 mmol/L (98-107) Carbon Dioxide Level 30 mmol/L (21-32) Anion Gap 7 (6-14) Blood Urea Nitrogen 6 mg/dL (8-26) L Creatinine 0.8 mg/dL (0.7-1.3) Estimated GFR (Cockcroft-Gault) 101.1 BUN/Creatinine Ratio 8 (6-20) Glucose Level 127 mg/dL (70-99) H Calcium Level 8.7 mg/dL (8.5-10.1) Magnesium Level 1.9 mg/dL (1.8-2.4) Total Bilirubin 0.7 mg/dL (0.2-1.0) Aspartate Amino Transferase (AST) 37 U/L (15-37) Alanine Aminotransferase (ALT) 69 U/L (16-63) H Alkaline Phosphatase 79 U/L (46-116) Total Protein 7.1 g/dL (6.4-8.2) Albumin 3.3 g/dL (3.4-5.0) L Albumin/Globulin Ratio 0.9 (1.0-1.7) L Current Medications: Meds: Current Medications Haloperidol (Haldol) 2 mg BID@0700,1900 PO Last administered on 06/22/17 17:11 ; Start 06/15/17 at 19:00 Olanzapine (ZyPREXA ZYDIS) 5 mg DAILY@1300 PO Last administered on 06/18/17 13: 57; Start 06/16/17 at 13:00; Stop 06/19/17 at 12:43; Status DC Oxcarbazepine (Trileptal) 300 mg DAILY PO Last administered on 06/17/17 08:09; Start 06/16/17 at 09:00; Stop 06/17/17 at 19:05; Status DC Olanzapine (ZyPREXA) 15 mg QHS PO Last administered on 06/18/17 19:52; Start 06/15/17 at 21:00; Stop 06/19/17 at 12:43; Status DC Oxcarbazepine (Trileptal) 600 mg QHS PO Last administered on 06/16/17t 19:11; Start 12/30/17 at 21:00; Stop 06/17/17 at 19:05; Status DC Acetaminophen (Tylenol) 650 mg PRN Q4HRS PRN PO PAIN / TEMP; Start 06/15/17 at 18:30 Docusate Sodium (Colace) 100 mg PRN Q12HR PRN PO CONSTIPATION; Start 06/15/17 at 18:30 Gabapentin (Neurontin) 300 mg TID PO Last administered on 06/22/17at 20:14; Start 06/15/17 at 21:00 Magnesium Oxide (Magnesium Oxide) 400 mg DAILYBFRLUN PO Last administered on 06/22/17at 13:37; Start 06/16/17 at 11:30 Oxcarbazepine (Trileptal) 600 mg BID PO Last administered on 06/20/17 08:37; Start 06/17/17 at 21:00; Stop 06/20/17 at 18:34; Status DC Haloperidol (Haldol) 5 mg 1X ONCE PO Last administered on 06/18/17at 04:34; Start 06/18/17 at 04:15; Stop 06/18/17 at 04:20; Status DC Lorazepam (Ativan) 1 mg 1X ONCE PO Last administered on 06/18/17 04:34; Start 06/18/17 at 04:15; Stop 06/18/17 at 04:20; Status DC Olanzapine (ZyPREXA ZYDIS) 5 mg PRN Q2HR PRN PO ANXIETY / AGITATION Last administered on 06/20/17at 15:33; Start 06/18/17 at 04:15 Haloperidol (Haldol) 2 mg 1X ONCE PO Last administered on 06/19/17at 09:58; Start 06/19/17 at 10:00; Stop 06/19/17 at 10:01; Status DC Risperidone (RisperDAL) 0.5 mg BID92 PO Last administered on 06/22/17 13:37; Start 06/19/17 at 14:00 Risperidone (RisperDAL) 2 mg HS PO Last administered on 06/22/17at 20:15; Start 06/19/17 at 21:00 Vitamin D (Vitamin D3) 50,000 unit WEEKLY PO Last administered on 06/19/17at 17: 11; Start 06/19/17 at 16:00 Oxcarbazepine (Trileptal) 600 mg DAILY PO Last administered on 06/22/17at 07:53; Start 06/21/17 at 09:00 Oxcarbazepine (Trileptal) 900 mg HS PO Last administered on 06/22/17at 20:16; Start 06/20/17 at 21:00 Fluvoxamine Maleate (Luvox) 25 mg QHS PO Last administered on 06/22/17at 20:14; Start 06/21/17 at 21:00; Stop 06/23/17 at 20:59 Fluvoxamine Maleate (Luvox) 50 mg QHS PO ; Start 06/23/17 at 21:00 Active Scripts Active Reported Docusate Sodium 100 Mg Capsule 100 Mg PO PRN Q12HR PRN Tylenol (Acetaminophen) 325 Mg Tablet 650 Mg PO PRN Q4HRS PRN Gabapentin 300 Mg Capsule 300 Mg PO TID Haloperidol 2 Mg Tablet 2 Mg PO BID@ 0700,1900 Zyprexa Zydis (Olanzapine) 5 Mg Tab.rapdis 5 Mg PO DAILY@1300 Zyprexa (Olanzapine) 15 Mg Tablet 15 Mg PO QHS Oxcarbazepine 300 Mg Tablet 300 Mg PO DAILY Oxcarbazepine 600 Mg Tablet 600 Mg PO QHS Loratadine 10 Mg Tablet 10 Mg PO DAILY I have reviewed the current psychotropics carefully including drug interactions. Risk benefit ratio favors no change other than as noted in my dictated progress note. Diagnosis: Problems: (1) Impulse control disorder (2) Bipolar affective, mixed, sev w/ psych (3) Schizoaffective disorder, chronic condition with acute exacerbation (4) Schizophrenia, disorganized, subchronic with acute exacerbation ERICKA RECINOS MD Jun 22, 2017 22:16
[2017-06-23 06:07] VITALS: BP 99/64
[2017-06-23] MEDS: risperiDONE 0.5 MG TABLET. PO SCH ×2 (08:22→13:39)
[2017-06-23] MEDS: GABAPENTIN 300 MG CAPSULE. PO SCH ×3 (08:22→19:38)
[2017-06-23] MEDS: HALOPERIDOL 2 MG TABLET PO SCH ×3 (08:24→19:00)
[2017-06-23] MEDS: MAGNESIUM OXIDE 400 MG TABLET PO SCH (08:24)
[2017-06-23 16:29] VITALS: BP 193/81
[2017-06-23] MEDS: risperiDONE 2 MG TABLET. PO SCH (19:38)
--- NOTE | 2017-06-23 20:19 | PDOC ---
Exam Note: Ronaldo Note: Please also refer to the separate dictated note~for this date of service dictated separately.~Patient seen individually. Discussed the patient with Nursing staff reviewed the chart.~Reviewed interim history and current functioning. Reviewed vital signs,~Labs/ Radiology~and current medications noted below. Continue current treatment with the changes noted in the dictated addendum note Assessment: Vital Signs: Vital Signs Date Time Temp Pulse Resp B/P (MAP) Pulse Ox O2 Delivery O2 Flow Rate FiO2 06/23/17 16:29 97.0 76 20 193/81 (118) 95 Room Air I&O Intake and Output 06/23/17 07:00 Intake Total 1080 ml Balance 1080 ml Intake Oral 1080 ml Current Medications: Meds: Current Medications Haloperidol (Haldol) 2 mg BID@0700,1900 PO Last administered on 06/23/17at 18:42 ; Start 06/15/17 at 19:00; Stop 06/23/17 at 19:17; Status DC Olanzapine (ZyPREXA ZYDIS) 5 mg DAILY@1300 PO Last administered on 06/18/17at 13: 57; Start 06/16/17 at 13:00; Stop 06/19/17 at 12:43; Status DC Oxcarbazepine (Trileptal) 300 mg DAILY PO Last administered on 06/17/17 08:09; Start 06/16/17 at 09:00; Stop 06/17/17 at 19:05; Status DC Olanzapine (ZyPREXA) 15 mg QHS PO Last administered on 06/18/17at 19:52; Start 06/15/17 at 21:00; Stop 06/19/17 at 12:43; Status DC Oxcarbazepine (Trileptal) 600 mg QHS PO Last administered on 06/16/17t 19:11; Start 06/15/17 at 21:00; Stop 06/17/17 at 19:05; Status DC Acetaminophen (Tylenol) 650 mg PRN Q4HRS PRN PO PAIN / TEMP; Start 06/15/17 at 18:30 Docusate Sodium (Colace) 100 mg PRN Q12HR PRN PO CONSTIPATION; Start 06/15/17 at 18:30 Gabapentin (Neurontin) 300 mg TID PO Last administered on 06/23/17at 19:38; Start 06/15/17 at 21:00 Magnesium Oxide (Magnesium Oxide) 400 mg DAILYBFRLUN PO Last administered on 08:24; Start 06/16/17 at 11:30 Oxcarbazepine (Trileptal) 600 mg BID PO Last administered on 06/20/17 08:37; Start 06/17/17 at 21:00; Stop 06/20/17 at 18:34; Status DC Haloperidol (Haldol) 5 mg 1X ONCE PO Last administered on 06/18/17at 04:34; Start 06/18/17 at 04:15; Stop 06/18/17 at 04:20; Status DC Lorazepam (Ativan) 1 mg 1X ONCE PO Last administered on 06/18/17 04:34; Start 06/18/17 at 04:15; Stop 06/18/17 at 04:20; Status DC Olanzapine (ZyPREXA ZYDIS) 5 mg PRN Q2HR PRN PO ANXIETY / AGITATION Last administered on 06/20/17at 15:33; Start 06/18/17 at 04:15 Haloperidol (Haldol) 2 mg 1X ONCE PO Last administered on 06/19/17 09:58; Start 06/19/17 at 10:00; Stop 06/19/17 at 10:01; Status DC Risperidone (RisperDAL) 0.5 mg BID92 PO Last administered on 06/23/17at 13:39; Start 06/19/17 at 14:00 Risperidone (RisperDAL) 2 mg HS PO Last administered on 06/23/17at 19:38; Start 06/19/17 at 21:00 Vitamin D (Vitamin D3) 50,000 unit WEEKLY PO Last administered on 06/19/17at 17: 11; Start 06/19/17 at 16:00 Oxcarbazepine (Trileptal) 600 mg DAILY PO Last administered on 06/23/17 08:22; Start 06/21/17 at 09:00 Oxcarbazepine (Trileptal) 900 mg HS PO Last administered on 06/23/17at 19:39; Start 06/20/17 at 21:00 Fluvoxamine Maleate (Luvox) 25 mg QHS PO Last administered on 06/22/17at 20:14; Start 06/21/17 at 21:00; Stop 06/23/17 at 20:59 Fluvoxamine Maleate (Luvox) 50 mg QHS PO Last administered on 06/23/17at 19:38; Start 06/23/17 at 21:00 Haloperidol (Haldol) 3 mg BID@0700,1900 PO ; Start 06/23/17 at 19:00 Active Scripts Active Reported Docusate Sodium 100 Mg Capsule 100 Mg PO PRN Q12HR PRN Tylenol (Acetaminophen) 325 Mg Tablet 650 Mg PO PRN Q4HRS PRN Gabapentin 300 Mg Capsule 300 Mg PO TID Haloperidol 2 Mg Tablet 2 Mg PO BID@ 0700,1900 Zyprexa Zydis (Olanzapine) 5 Mg Tab.rapdis 5 Mg PO DAILY@1300 Zyprexa (Olanzapine) 15 Mg Tablet 15 Mg PO QHS Oxcarbazepine 300 Mg Tablet 300 Mg PO DAILY Oxcarbazepine 600 Mg Tablet 600 Mg PO QHS Loratadine 10 Mg Tablet 10 Mg PO DAILY I have reviewed the current psychotropics carefully including drug interactions. Risk benefit ratio favors no change other than as noted in my dictated progress note. Diagnosis: Problems: (1) Impulse control disorder (2) Bipolar affective, mixed, sev w/ psych (3) Hepatitis C (4) Schizoaffective disorder, chronic condition with acute exacerbation (5) Schizophrenia, disorganized, subchronic with acute exacerbation ERICKA RECINOS MD Jun 23, 2017 20:19
--- NOTE | 2017-06-24 03:11 | PN ---
DATE: 06/22/2017 PSYCHIATRIC PROGRESS NOTE This late entry 06/22/2017 covers elements not covered in my initial note of 06/22/2017. I met with the patient evening of 06/22/2017 in his room. He has been quiet, withdrawn, not aggressive. Still has [place] movements. REVIEW OF SYSTEMS: No CV, , Pulmonary, eye, systems symptoms on review. MENTAL STATUS EXAMINATION: Oriented to himself, situation. Speech often responses monosyllabic, abstraction fair, computation impaired, language function intact, still appears psychotic, no active suicidal or homicidal ideation. Labs reviewed. 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 PLAN: Continue current psychotropics, increase the Luvox gradually. MAN Snow RECINOS MD DR: AMEE/tunde JOB#: [id number] / [id number]
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
[2017-06-24 05:52] VITALS: BP 114/62
[2017-06-24] MEDS: HALOPERIDOL 2 MG TABLET PO SCH ×2 (05:58→19:08)
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
[2017-06-24] MEDS: risperiDONE 0.5 MG TABLET. PO SCH ×2 (08:36→13:35)
[2017-06-24] MEDS: GABAPENTIN 300 MG CAPSULE. PO SCH ×3 (08:36→20:08)
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
--- NOTE | 2017-06-24 10:39 | PN ---
DATE: 06/23/2017 PSYCHIATRIC PROGRESS NOTE This note covers elements not covered in my initial note 06/23/2017. SUBJECTIVE: Met with the patient in the evening of 06/23/2017 in the dining room and later in his room. Per nursing report, he is quite irritable in the morning, took his meds later in the day, continues to have the Cobb's movements, which come across somewhat overbearing and aggressive to staff. REVIEW OF SYSTEMS: Other than the movements, no CV, , pulmonary, eye system symptoms on review. MENTAL STATUS EXAM: Oriented to himself and situation. Speech is difficult to understand, but otherwise coherent, abstraction fair, computation impaired, language function intact. He appears paranoid, somewhat suspicious. No active suicidal or homicidal ideation at this time. Limb movements are consistent with Cobb's. LABORATORY DATA: Reviewed. 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 PLAN: Given his ongoing Cobb's movements, we will increase Haldol from 2 mg b.i.d. to 3 mg b.i.d., continue Trileptal current dosage along with Risperdal, Zyprexa p.r.n., Luvox for his obsessive thought processes is increasing to 50 mg a day. ERICKA RECINOS MD DR: AMEE/tunde JOB#: [id number] / [id number]
[2017-06-24] MEDS: MAGNESIUM OXIDE 400 MG TABLET PO SCH (11:44)
[2017-06-24 15:35] VITALS: BP 131/76
[2017-06-24] MEDS: risperiDONE 2 MG TABLET. PO SCH (20:08)
--- NOTE | 2017-06-24 20:08 | PDOC ---
Exam Note: Ronaldo Note: Please also refer to the separate dictated note~for this date of service dictated separately.~Patient seen individually. Discussed the patient with Nursing staff reviewed the chart.~Reviewed interim history and current functioning. Reviewed vital signs,~Labs/ Radiology~and current medications noted below. Continue current treatment with the changes noted in the dictated addendum note Assessment: Vital Signs: Vital Signs Date Time Temp Pulse Resp B/P (MAP) Pulse Ox O2 Delivery O2 Flow Rate FiO2 06/24/17 15:35 97.8 76 18 131/76 (94) 98 06/24/17 05:52 Room Air I&O Intake and Output 06/24/17 06:59 Intake Total 1080 ml Balance 1080 ml Intake Oral 1080 ml Current Medications: Meds: Current Medications Haloperidol (Haldol) 2 mg BID@0700,1900 PO Last administered on 06/23/17at 18:42 ; Start 06/15/17 at 19:00; Stop 06/23/17 at 19:17; Status DC Olanzapine (ZyPREXA ZYDIS) 5 mg DAILY@1300 PO Last administered on 06/18/17at 13: 57; Start 06/16/17 at 13:00; Stop 06/19/17 at 12:43; Status DC Oxcarbazepine (Trileptal) 300 mg DAILY PO Last administered on 06/17/17at 08:09; Start 06/16/17 at 09:00; Stop 06/17/17 at 19:05; Status DC Olanzapine (ZyPREXA) 15 mg QHS PO Last administered on 06/18/17at 19:52; Start 06/15/17 at 21:00; Stop 06/19/17 at 12:43; Status DC Oxcarbazepine (Trileptal) 600 mg QHS PO Last administered on 06/16/17t 19:11; Start 06/15/17 at 21:00; Stop 06/17/17 at 19:05; Status DC Acetaminophen (Tylenol) 650 mg PRN Q4HRS PRN PO PAIN / TEMP; Start 06/15/17 at 18:30 Docusate Sodium (Colace) 100 mg PRN Q12HR PRN PO CONSTIPATION; Start 06/15/17 at 18:30 Gabapentin (Neurontin) 300 mg TID PO Last administered on 1/8/18at 13:35; Start 06/15/17 at 21:00 Magnesium Oxide (Magnesium Oxide) 400 mg DAILYBFRLUN PO Last administered on 11:44; Start 06/16/17 at 11:30 Oxcarbazepine (Trileptal) 600 mg BID PO Last administered on 06/20/17 08:37; Start 06/17/17 at 21:00; Stop 06/20/17 at 18:34; Status DC Haloperidol (Haldol) 5 mg 1X ONCE PO Last administered on 06/18/17 04:34; Start 06/18/17 at 04:15; Stop 06/18/17 at 04:20; Status DC Lorazepam (Ativan) 1 mg 1X ONCE PO Last administered on 06/18/17 04:34; Start 06/18/17 at 04:15; Stop 06/18/17 at 04:20; Status DC Olanzapine (ZyPREXA ZYDIS) 5 mg PRN Q2HR PRN PO ANXIETY / AGITATION Last administered on 06/20/17 15:33; Start 06/18/17 at 04:15 Haloperidol (Haldol) 2 mg 1X ONCE PO Last administered on 06/19/17 09:58; Start 06/19/17 at 10:00; Stop 06/19/17 at 10:01; Status DC Risperidone (RisperDAL) 0.5 mg BID92 PO Last administered on 06/24/17 13:35; Start 06/19/17 at 14:00 Risperidone (RisperDAL) 2 mg HS PO Last administered on 06/23/17 19:38; Start 06/19/17 at 21:00 Vitamin D (Vitamin D3) 50,000 unit WEEKLY PO Last administered on 06/19/17 17: 11; Start 06/19/17 at 16:00 Oxcarbazepine (Trileptal) 600 mg DAILY PO Last administered on 06/24/17 08:36; Start 06/21/17 at 09:00 Oxcarbazepine (Trileptal) 900 mg HS PO Last administered on 06/23/17 19:39; Start 06/20/17 at 21:00 Fluvoxamine Maleate (Luvox) 25 mg QHS PO Last administered on 1/6/18at 20:14; Start 06/21/17 at 21:00; Stop 06/23/17 at 20:59; Status DC Fluvoxamine Maleate (Luvox) 50 mg QHS PO Last administered on 06/23/17at 19:38; Start 06/23/17 at 21:00 Haloperidol (Haldol) 3 mg BID@0700,1900 PO Last administered on 06/24/17at 19:08 ; Start 06/23/17 at 19:00 Active Scripts Active Reported Docusate Sodium 100 Mg Capsule 100 Mg PO PRN Q12HR PRN Tylenol (Acetaminophen) 325 Mg Tablet 650 Mg PO PRN Q4HRS PRN Gabapentin 300 Mg Capsule 300 Mg PO TID Haloperidol 2 Mg Tablet 2 Mg PO BID@ 0700,1900 Zyprexa Zydis (Olanzapine) 5 Mg Tab.rapdis 5 Mg PO DAILY@1300 Zyprexa (Olanzapine) 15 Mg Tablet 15 Mg PO QHS Oxcarbazepine 300 Mg Tablet 300 Mg PO DAILY Oxcarbazepine 600 Mg Tablet 600 Mg PO QHS Loratadine 10 Mg Tablet 10 Mg PO DAILY I have reviewed the current psychotropics carefully including drug interactions. Risk benefit ratio favors no change other than as noted in my dictated progress note. Diagnosis: Problems: (1) Impulse control disorder (2) Bipolar affective, mixed, sev w/ psych (3) Hepatitis C (4) Schizoaffective disorder, chronic condition with acute exacerbation (5) Schizophrenia, disorganized, subchronic with acute exacerbation ERICKA RECINOS MD Jun 24, 2017 20:08
[2017-06-24] MEDS ORDERED: CHOL500021 PO (21:19)
[2017-06-24] MEDS ORDERED: MAGN400T3 PO (21:24)
[2017-06-24] MEDS ORDERED: OLAN5TAB3 PO (21:26)
[2017-06-24] MEDS ORDERED: FLUV50TA2 PO (21:29)
[2017-06-24] MEDS ORDERED: RISP0.5T24 PO (21:31)
[2017-06-24] MEDS ORDERED: RISP2TAB33 PO (21:32)
[2017-06-24] MEDS ORDERED: MAGNESIUM HYDROXIDE 2,400 MG/30 ML ORAL.SUSP. PO PRN (22:00)
[2017-06-25] MEDS: HALOPERIDOL 2 MG TABLET PO SCH ×2 (05:59→18:34)
[2017-06-25 06:21] VITALS: BP 108/69
[2017-06-25] MEDS: MAGNESIUM OXIDE 400 MG TABLET PO SCH (08:00)
[2017-06-25] MEDS: risperiDONE 0.5 MG TABLET. PO SCH ×2 (08:01→13:51)
[2017-06-25] MEDS: GABAPENTIN 300 MG CAPSULE. PO SCH ×3 (08:01→20:29)
[2017-06-25 16:11] VITALS: BP 147/80
--- NOTE | 2017-06-25 20:12 | PDOC ---
Exam Note: Ronaldo Note: Please also refer to the separate dictated note~for this date of service dictated separately.~Patient seen individually. Discussed the patient with Nursing staff reviewed the chart.~Reviewed interim history and current functioning. Reviewed vital signs,~Labs/ Radiology~and current medications noted below. Continue current treatment with the changes noted in the dictated addendum note Assessment: Vital Signs: Vital Signs Date Time Temp Pulse Resp B/P (MAP) Pulse Ox O2 Delivery O2 Flow Rate FiO2 06/25/17 16:11 98.6 64 16 147/80 (102) 97 06/24/17 05:52 Room Air I&O Intake and Output 06/25/17 07:00 Intake Total 1080 ml Balance 1080 ml Intake Oral 1080 ml Current Medications: Meds: Current Medications Haloperidol (Haldol) 2 mg BID@0700,1900 PO Last administered on 06/23/17at 18:42 ; Start 06/15/17 at 19:00; Stop 06/23/17 at 19:17; Status DC Olanzapine (ZyPREXA ZYDIS) 5 mg DAILY@1300 PO Last administered on 06/18/17at 13: 57; Start 06/16/17 at 13:00; Stop 06/19/17 at 12:43; Status DC Oxcarbazepine (Trileptal) 300 mg DAILY PO Last administered on 06/17/17at 08:09; Start 06/16/17 at 09:00; Stop 06/17/17 at 19:05; Status DC Olanzapine (ZyPREXA) 15 mg QHS PO Last administered on 06/18/17at 19:52; Start 06/15/17 at 21:00; Stop 06/19/17 at 12:43; Status DC Oxcarbazepine (Trileptal) 600 mg QHS PO Last administered on 06/16/17t 19:11; Start 06/15/17 at 21:00; Stop 06/17/17 at 19:05; Status DC Acetaminophen (Tylenol) 650 mg PRN Q4HRS PRN PO PAIN / TEMP; Start 06/15/17 at 18:30 Docusate Sodium (Colace) 100 mg PRN Q12HR PRN PO CONSTIPATION; Start 06/15/17 at 18:30 Gabapentin (Neurontin) 300 mg TID PO Last administered on 1/9/18at 13:51; Start 06/15/17 at 21:00 Magnesium Oxide (Magnesium Oxide) 400 mg DAILYBFRLUN PO Last administered on 08:00; Start 06/16/17 at 11:30 Oxcarbazepine (Trileptal) 600 mg BID PO Last administered on 06/20/17 08:37; Start 06/17/17 at 21:00; Stop 06/20/17 at 18:34; Status DC Haloperidol (Haldol) 5 mg 1X ONCE PO Last administered on 06/18/17 04:34; Start 06/18/17 at 04:15; Stop 06/18/17 at 04:20; Status DC Lorazepam (Ativan) 1 mg 1X ONCE PO Last administered on 06/18/17 04:34; Start 06/18/17 at 04:15; Stop 06/18/17 at 04:20; Status DC Olanzapine (ZyPREXA ZYDIS) 5 mg PRN Q2HR PRN PO ANXIETY / AGITATION Last administered on 06/25/17 08:02; Start 06/18/17 at 04:15 Haloperidol (Haldol) 2 mg 1X ONCE PO Last administered on 06/19/17 09:58; Start 06/19/17 at 10:00; Stop 06/19/17 at 10:01; Status DC Risperidone (RisperDAL) 0.5 mg BID92 PO Last administered on 06/25/17 13:51; Start 06/19/17 at 14:00 Risperidone (RisperDAL) 2 mg HS PO Last administered on 06/24/17 20:08; Start 06/19/17 at 21:00 Vitamin D (Vitamin D3) 50,000 unit WEEKLY PO Last administered on 06/19/17 17: 11; Start 06/19/17 at 16:00 Oxcarbazepine (Trileptal) 600 mg DAILY PO Last administered on 06/25/17 08:01; Start 06/21/17 at 09:00 Oxcarbazepine (Trileptal) 900 mg HS PO Last administered on 06/24/17 20:09; Start 06/20/17 at 21:00 Fluvoxamine Maleate (Luvox) 25 mg QHS PO Last administered on 1/6/18at 20:14; Start 06/21/17 at 21:00; Stop 06/23/17 at 20:59; Status DC Fluvoxamine Maleate (Luvox) 50 mg QHS PO Last administered on 06/24/17at 20:09; Start 06/23/17 at 21:00 Haloperidol (Haldol) 3 mg BID@0700,1900 PO Last administered on 06/25/17at 18:34 ; Start 06/23/17 at 19:00 Magnesium Hydroxide (Milk Of Magnesia) 2,400 mg PRN DAILY PRN PO CONSTIPATION; Start 06/24/17 at 22:00 Active Scripts Active Reported Risperdal (Risperidone) 2 Mg Tablet 2 Mg PO HS Risperdal (Risperidone) 0.5 Mg Tablet 0.5 Mg PO BID92 Fluvoxamine Maleate 50 Mg Tablet 50 Mg PO HS Zyprexa (Olanzapine) 5 Mg Tablet 5 Mg PO PRN Q2HR PRN Magnesium Oxide 400 Mg Tablet 400 Mg PO DAILYBFRLUN D3-50 (Cholecalciferol (Vitamin D3)) 50,000 Unit Capsule 50,000 Unit PO WEEKLY ON SATURDAY Docusate Sodium 100 Mg Capsule 100 Mg PO PRN Q12HR PRN Tylenol (Acetaminophen) 325 Mg Tablet 650 Mg PO PRN Q4HRS PRN Gabapentin 300 Mg Capsule 300 Mg PO TID Haloperidol 2 Mg Tablet 3 Mg PO BID@ 0700,1900 Oxcarbazepine 300 Mg Tablet 600 Mg PO DAILY Oxcarbazepine 600 Mg Tablet 900 Mg PO QHS I have reviewed the current psychotropics carefully including drug interactions. Risk benefit ratio favors no change other than as noted in my dictated progress note. Diagnosis: Problems: (1) Impulse control disorder (2) Bipolar affective, mixed, sev w/ psych (3) Hepatitis C (4) Schizoaffective disorder, chronic condition with acute exacerbation (5) Schizophrenia, disorganized, subchronic with acute exacerbation ERICKA RECINOS MD Jun 25, 2017 20:12
[2017-06-25] MEDS: risperiDONE 2 MG TABLET. PO SCH (20:29)
[2017-06-26] MEDS: HALOPERIDOL 2 MG TABLET PO SCH ×2 (06:01→18:02)
[2017-06-26 06:24] VITALS: BP 112/54
--- NOTE | 2017-06-26 08:19 | PN ---
DATE: 06/24/2017 This is a late entry for 06/24/2017 and covers elements not covered in my initial note of 06/24/2017. I with the patient the evening of 06/24/2017. The patient continues to have the Mary's movements, but behaviorally he seems better, less paranoid, asking to have a shower, gets upset if there is no television around him. He sustained a knee abrasion, possibly jumping out of his bed or hitting his knee on the edge of his bed. REVIEW OF SYSTEMS: No CV, , pulmonary, eye, ENT system symptoms on review other than the movement disorder. Reliability poor. MENTAL STATUS EXAM: Oriented to himself. Insight, judgment, recent memory is impaired. Language function intact. Attention span short. Mood and affect remain somewhat labile, but better than before. LABORATORY DATA: Reviewed. IMPRESSION: Schizoaffective disorder, bipolar type, mixed with psychotic features; major neurocognitive disorder secondary to [place]'s with delusion, behavioral disturbance. PLAN: Continue psychotropics as mentioned in my initial note including Luvox, initiated for his obsessive thought processes, Trileptal as a mood stabilizer, Haldol as a part of his [place]'s movement disorder treatment, Risperdal as an antipsychotic. Adjust further as clinically indicated. MAN Snow RECINOS MD DR: AMEE/tunde JOB#: [id number] / [id number]
[2017-06-26] MEDS: GABAPENTIN 300 MG CAPSULE. PO SCH ×3 (08:30→20:38)
[2017-06-26] MEDS: risperiDONE 0.5 MG TABLET. PO SCH ×2 (08:30→13:36)
[2017-06-26] MEDS: MAGNESIUM OXIDE 400 MG TABLET PO SCH (08:30)
[2017-06-26] MEDS: CHOLECALCIFEROL (VITAMIN D3) 50,000 UNIT CAPSULE PO SCH (08:31)
[2017-06-26 16:16] VITALS: BP 149/62
--- NOTE | 2017-06-26 19:53 | PDOC ---
Exam Note: Ronlado Note: Please also refer to the separate dictated note~for this date of service dictated separately.~Patient seen individually. Discussed the patient with Nursing staff reviewed the chart.~Reviewed interim history and current functioning. Reviewed vital signs,~Labs/ Radiology~and current medications noted below. Continue current treatment with the changes noted in the dictated addendum note Assessment: Vital Signs: Vital Signs Date Time Temp Pulse Resp B/P (MAP) Pulse Ox O2 Delivery O2 Flow Rate FiO2 06/26/17 16:16 97.1 68 18 149/62 (91) 95 06/24/17 05:52 Room Air I&O Intake and Output 06/26/17 07:00 Intake Total 1500 ml Balance 1500 ml Intake Oral 1500 ml Current Medications: Meds: Current Medications Haloperidol (Haldol) 2 mg BID@0700,1900 PO Last administered on 06/23/17at 18:42 ; Start 06/15/17 at 19:00; Stop 06/23/17 at 19:17; Status DC Olanzapine (ZyPREXA ZYDIS) 5 mg DAILY@1300 PO Last administered on 06/18/17at 13: 57; Start 06/16/17 at 13:00; Stop 06/19/17 at 12:43; Status DC Oxcarbazepine (Trileptal) 300 mg DAILY PO Last administered on 06/17/17at 08:09; Start 06/16/17 at 09:00; Stop 06/17/17 at 19:05; Status DC Olanzapine (ZyPREXA) 15 mg QHS PO Last administered on 06/18/17at 19:52; Start 06/15/17 at 21:00; Stop 06/19/17 at 12:43; Status DC Oxcarbazepine (Trileptal) 600 mg QHS PO Last administered on 06/16/17t 19:11; Start 06/15/17 at 21:00; Stop 06/17/17 at 19:05; Status DC Acetaminophen (Tylenol) 650 mg PRN Q4HRS PRN PO PAIN / TEMP; Start 06/15/17 at 18:30 Docusate Sodium (Colace) 100 mg PRN Q12HR PRN PO CONSTIPATION; Start 06/15/17 at 18:30 Gabapentin (Neurontin) 300 mg TID PO Last administered on 1/10/18at 13:36; Start 06/15/17 at 21:00 Magnesium Oxide (Magnesium Oxide) 400 mg DAILYBFRLUN PO Last administered on 08:30; Start 06/16/17 at 11:30 Oxcarbazepine (Trileptal) 600 mg BID PO Last administered on 06/20/17 08:37; Start 06/17/17 at 21:00; Stop 06/20/17 at 18:34; Status DC Haloperidol (Haldol) 5 mg 1X ONCE PO Last administered on 06/18/17 04:34; Start 06/18/17 at 04:15; Stop 06/18/17 at 04:20; Status DC Lorazepam (Ativan) 1 mg 1X ONCE PO Last administered on 06/18/17 04:34; Start 06/18/17 at 04:15; Stop 06/18/17 at 04:20; Status DC Olanzapine (ZyPREXA ZYDIS) 5 mg PRN Q2HR PRN PO ANXIETY / AGITATION Last administered on 06/25/17 08:02; Start 06/18/17 at 04:15 Haloperidol (Haldol) 2 mg 1X ONCE PO Last administered on 06/19/17 09:58; Start 06/19/17 at 10:00; Stop 06/19/17 at 10:01; Status DC Risperidone (RisperDAL) 0.5 mg BID92 PO Last administered on 06/26/17 13:36; Start 06/19/17 at 14:00 Risperidone (RisperDAL) 2 mg HS PO Last administered on 06/25/17 20:29; Start 06/19/17 at 21:00 Vitamin D (Vitamin D3) 50,000 unit WEEKLY PO Last administered on 06/26/17 08: 31; Start 06/19/17 at 16:00 Oxcarbazepine (Trileptal) 600 mg DAILY PO Last administered on 06/26/17 08:30 ; Start 06/21/17 at 09:00 Oxcarbazepine (Trileptal) 900 mg HS PO Last administered on 06/25/17 20:28; Start 06/20/17 at 21:00 Fluvoxamine Maleate (Luvox) 25 mg QHS PO Last administered on 1/6/18at 20:14; Start 06/21/17 at 21:00; Stop 06/23/17 at 20:59; Status DC Fluvoxamine Maleate (Luvox) 50 mg QHS PO Last administered on 06/25/17at 20:28; Start 06/23/17 at 21:00 Haloperidol (Haldol) 3 mg BID@0700,1900 PO Last administered on 06/26/17at 18:02 ; Start 06/23/17 at 19:00 Magnesium Hydroxide (Milk Of Magnesia) 2,400 mg PRN DAILY PRN PO CONSTIPATION; Start 06/24/17 at 22:00 Active Scripts Active Reported Risperdal (Risperidone) 2 Mg Tablet 2 Mg PO HS Risperdal (Risperidone) 0.5 Mg Tablet 0.5 Mg PO BID92 Fluvoxamine Maleate 50 Mg Tablet 50 Mg PO HS Zyprexa (Olanzapine) 5 Mg Tablet 5 Mg PO PRN Q2HR PRN Magnesium Oxide 400 Mg Tablet 400 Mg PO DAILYBFRLUN D3-50 (Cholecalciferol (Vitamin D3)) 50,000 Unit Capsule 50,000 Unit PO WEEKLY ON SATURDAY Docusate Sodium 100 Mg Capsule 100 Mg PO PRN Q12HR PRN Tylenol (Acetaminophen) 325 Mg Tablet 650 Mg PO PRN Q4HRS PRN Gabapentin 300 Mg Capsule 300 Mg PO TID Haloperidol 2 Mg Tablet 3 Mg PO BID@ 0700,1900 Oxcarbazepine 300 Mg Tablet 600 Mg PO DAILY Oxcarbazepine 600 Mg Tablet 900 Mg PO QHS I have reviewed the current psychotropics carefully including drug interactions. Risk benefit ratio favors no change other than as noted in my dictated progress note. Diagnosis: Problems: (1) Impulse control disorder (2) Bipolar affective, mixed, sev w/ psych (3) Hepatitis C (4) Schizoaffective disorder, chronic condition with acute exacerbation (5) Schizophrenia, disorganized, subchronic with acute exacerbation ERICKA RECINOS MD Jun 26, 2017 19:53
[2017-06-26] MEDS: risperiDONE 2 MG TABLET. PO SCH (20:38)
--- NOTE | 2017-06-27 03:00 | PN ---
DATE: 06/25/2017 This late entry for 06/25/2017 covers elements not covered in my initial note of 06/25/2017. SUBJECTIVE: The patient slept 8 hours previous evening. In the morning of 06/25/2017 per nursing report, he was restless, anxious, constantly moving. Together with his motor movements consequent to [place]'s, he can come across apparently being aggressive, but does redirect. He did receive Zyprexa in the morning, which seemed to help. He has been withdrawn much of the day. No further PRNs needed to be given, however. I met with him in his room. REVIEW OF SYSTEMS: No CV, , pulmonary, eye system symptoms on review. [place]'s movements are evident. MENTAL STATUS EXAM: Oriented to himself. Speech, often responses monosyllabic. Abstraction fair, computation impaired, language function intact. Attention span short, somewhat paranoid, but no active suicidal or homicidal ideation. LABORATORY DATA: Reviewed. IMPRESSION: Unchanged from initial note, schizoaffective disorder, bipolar type, mixed with psychotic features; major neurocognitive disorder secondary to [place]'s with delusion, depression, obsessive compulsive disorder. PLAN: Continue psychotropics mentioned in my initial note. I have increased the Haldol, adjusted the Risperdal, started the Luvox for his obsessive compulsive symptoms. He remains on Trileptal. We may transfer back to the group home in the next day or so. ERICKA RECINOS MD DR: AMEE/tunde JOB#: [id number] / [id number]
[2017-06-27] MEDS: HALOPERIDOL 2 MG TABLET PO SCH ×2 (05:27→18:07)
[2017-06-27 06:03] VITALS: BP 110/60
[2017-06-27] MEDS: GABAPENTIN 300 MG CAPSULE. PO SCH ×3 (08:07→19:40)
[2017-06-27] MEDS: risperiDONE 0.5 MG TABLET. PO SCH ×2 (08:07→14:27)
[2017-06-27] MEDS: MAGNESIUM OXIDE 400 MG TABLET PO SCH (12:01)
[2017-06-27 15:51] VITALS: BP 136/70
[2017-06-27] MEDS: risperiDONE 2 MG TABLET. PO SCH (19:40)
--- NOTE | 2017-06-27 20:03 | PDOC ---
Exam Note: Ronaldo Note: Please also refer to the separate dictated note~for this date of service dictated separately.~Patient seen individually. Discussed the patient with Nursing staff reviewed the chart.~Reviewed interim history and current functioning. Reviewed vital signs,~Labs/ Radiology~and current medications noted below. Continue current treatment with the changes noted in the dictated addendum note Assessment: Vital Signs: Vital Signs Date Time Temp Pulse Resp B/P (MAP) Pulse Ox O2 Delivery O2 Flow Rate FiO2 06/27/17 15:51 97.8 72 20 136/70 (92) 95 06/24/17 05:52 Room Air I&O Intake and Output 06/27/17 07:00 Intake Total 1260 ml Balance 1260 ml Intake Oral 1260 ml # Bowel Movements 1 Current Medications: Meds: Current Medications Haloperidol (Haldol) 2 mg BID@0700,1900 PO Last administered on 06/23/17 18:42 ; Start 06/15/17 at 19:00; Stop 06/23/17 at 19:17; Status DC Olanzapine (ZyPREXA ZYDIS) 5 mg DAILY@1300 PO Last administered on 06/18/17at 13: 57; Start 06/16/17 at 13:00; Stop 06/19/17 at 12:43; Status DC Oxcarbazepine (Trileptal) 300 mg DAILY PO Last administered on 06/17/17 08:09; Start 06/16/17 at 09:00; Stop 06/17/17 at 19:05; Status DC Olanzapine (ZyPREXA) 15 mg QHS PO Last administered on 06/18/17at 19:52; Start 06/15/17 at 21:00; Stop 06/19/17 at 12:43; Status DC Oxcarbazepine (Trileptal) 600 mg QHS PO Last administered on 06/16/17t 19:11; Start 06/15/17 at 21:00; Stop 06/17/17 at 19:05; Status DC Acetaminophen (Tylenol) 650 mg PRN Q4HRS PRN PO PAIN / TEMP; Start 06/15/17 at 18:30 Docusate Sodium (Colace) 100 mg PRN Q12HR PRN PO CONSTIPATION; Start 06/15/17 at 18:30 Gabapentin (Neurontin) 300 mg TID PO Last administered on 06/27/17at 19:40; Start 06/15/17 at 21:00 Magnesium Oxide (Magnesium Oxide) 400 mg DAILYBFRLUN PO Last administered on 05/04at 12:01; Start 06/16/17 at 11:30 Oxcarbazepine (Trileptal) 600 mg BID PO Last administered on 06/20/17at 08:37; Start 06/17/17 at 21:00; Stop 06/20/17 at 18:34; Status DC Haloperidol (Haldol) 5 mg 1X ONCE PO Last administered on 06/18/17 04:34; Start 06/18/17 at 04:15; Stop 06/18/17 at 04:20; Status DC Lorazepam (Ativan) 1 mg 1X ONCE PO Last administered on 06/18/17 04:34; Start 06/18/17 at 04:15; Stop 06/18/17 at 04:20; Status DC Olanzapine (ZyPREXA ZYDIS) 5 mg PRN Q2HR PRN PO ANXIETY / AGITATION Last administered on 06/25/17at 08:02; Start 06/18/17 at 04:15 Haloperidol (Haldol) 2 mg 1X ONCE PO Last administered on 06/19/17at 09:58; Start 06/19/17 at 10:00; Stop 06/19/17 at 10:01; Status DC Risperidone (RisperDAL) 0.5 mg BID92 PO Last administered on 06/27/17at 14:27; Start 06/19/17 at 14:00 Risperidone (RisperDAL) 2 mg HS PO Last administered on 06/27/17at 19:40; Start 06/19/17 at 21:00 Vitamin D (Vitamin D3) 50,000 unit WEEKLY PO Last administered on 06/26/17at 08: 31; Start 06/19/17 at 16:00 Oxcarbazepine (Trileptal) 600 mg DAILY PO Last administered on 06/27/17at 08:07 ; Start 06/21/17 at 09:00 Oxcarbazepine (Trileptal) 900 mg HS PO Last administered on 06/27/17at 19:40; Start 06/20/17 at 21:00 Fluvoxamine Maleate (Luvox) 25 mg QHS PO Last administered on 06/22/17at 20:14; Start 06/21/17 at 21:00; Stop 06/23/17 at 20:59; Status DC Fluvoxamine Maleate (Luvox) 50 mg QHS PO Last administered on 06/27/17at 19:39; Start 06/23/17 at 21:00 Haloperidol (Haldol) 3 mg BID@0700,1900 PO Last administered on 06/27/17at 18:07 ; Start 06/23/17 at 19:00 Magnesium Hydroxide (Milk Of Magnesia) 2,400 mg PRN DAILY PRN PO CONSTIPATION; Start 06/24/17 at 22:00 Active Scripts Active Reported Risperdal (Risperidone) 2 Mg Tablet 2 Mg PO HS Risperdal (Risperidone) 0.5 Mg Tablet 0.5 Mg PO BID92 Fluvoxamine Maleate 50 Mg Tablet 50 Mg PO HS Zyprexa (Olanzapine) 5 Mg Tablet 5 Mg PO PRN Q2HR PRN Magnesium Oxide 400 Mg Tablet 400 Mg PO DAILYBFRLUN D3-50 (Cholecalciferol (Vitamin D3)) 50,000 Unit Capsule 50,000 Unit PO WEEKLY ON SATURDAY Docusate Sodium 100 Mg Capsule 100 Mg PO PRN Q12HR PRN Tylenol (Acetaminophen) 325 Mg Tablet 650 Mg PO PRN Q4HRS PRN Gabapentin 300 Mg Capsule 300 Mg PO TID Haloperidol 2 Mg Tablet 3 Mg PO BID@ 0700,1900 Oxcarbazepine 300 Mg Tablet 600 Mg PO DAILY Oxcarbazepine 600 Mg Tablet 900 Mg PO QHS I have reviewed the current psychotropics carefully including drug interactions. Risk benefit ratio favors no change other than as noted in my dictated progress note. Diagnosis: Problems: (1) Impulse control disorder (2) Bipolar affective, mixed, sev w/ psych (3) Hepatitis C (4) Schizoaffective disorder, chronic condition with acute exacerbation (5) Schizophrenia, disorganized, subchronic with acute exacerbation ERICKA RECINOS MD Jun 27, 2017 20:03
[2017-06-28] MEDS: HALOPERIDOL 2 MG TABLET PO SCH (06:23)
[2017-06-28 06:31] VITALS: BP 108/62
[2017-06-28] MEDS: GABAPENTIN 300 MG CAPSULE. PO SCH (08:10)
[2017-06-28] MEDS: risperiDONE 0.5 MG TABLET. PO SCH (08:10)
[2017-06-28] MEDS: MAGNESIUM OXIDE 400 MG TABLET PO SCH (10:43)
--- NOTE | 2017-06-28 18:01 | PDOC ---
Exam Note: Ronaldo Note: Please also refer to the separate dictated note~for this date of service dictated separately.~Patient seen individually. Discussed the patient with Nursing staff reviewed the chart.~Reviewed interim history and current functioning. Reviewed vital signs,~Labs/ Radiology~and current medications noted below. Continue current treatment with the changes noted in the dictated addendum note Assessment: Vital Signs: Vital Signs Date Time Temp Pulse Resp B/P (MAP) Pulse Ox O2 Delivery O2 Flow Rate FiO2 06/28/17 06:31 97.0 78 20 108/62 (77) 99 06/24/17 05:52 Room Air I&O Intake and Output 06/28/17 07:00 Intake Total 1200 ml Balance 1200 ml Intake Oral 1200 ml # Bowel Movements 1 Current Medications: Meds: Current Medications Haloperidol (Haldol) 2 mg BID@0700,1900 PO Last administered on 06/23/17 18:42 ; Start 06/15/17 at 19:00; Stop 06/23/17 at 19:17; Status DC Olanzapine (ZyPREXA ZYDIS) 5 mg DAILY@1300 PO Last administered on 06/18/17at 13: 57; Start 06/16/17 at 13:00; Stop 06/19/17 at 12:43; Status DC Oxcarbazepine (Trileptal) 300 mg DAILY PO Last administered on 06/17/17 08:09; Start 06/16/17 at 09:00; Stop 06/17/17 at 19:05; Status DC Olanzapine (ZyPREXA) 15 mg QHS PO Last administered on 06/18/17at 19:52; Start 06/15/17 at 21:00; Stop 06/19/17 at 12:43; Status DC Oxcarbazepine (Trileptal) 600 mg QHS PO Last administered on 06/16/17t 19:11; Start 06/15/17 at 21:00; Stop 06/17/17 at 19:05; Status DC Acetaminophen (Tylenol) 650 mg PRN Q4HRS PRN PO PAIN / TEMP; Start 06/15/17 at 18:30; Stop 06/28/17 at 13:27; Status DC Docusate Sodium (Colace) 100 mg PRN Q12HR PRN PO CONSTIPATION; Start 12/30/17 at 18:30; Stop 06/28/17 at 13:27; Status DC Gabapentin (Neurontin) 300 mg TID PO Last administered on 06/28/17at 08:10; Start 06/15/17 at 21:00; Stop 06/28/17 at 13:27; Status DC Magnesium Oxide (Magnesium Oxide) 400 mg DAILYBFRLUN PO Last administered on 06/03at 10:43; Start 06/16/17 at 11:30; Stop 06/28/17 at 13:27; Status DC Oxcarbazepine (Trileptal) 600 mg BID PO Last administered on 06/20/17at 08:37; Start 06/17/17 at 21:00; Stop 06/20/17 at 18:34; Status DC Haloperidol (Haldol) 5 mg 1X ONCE PO Last administered on 06/18/17at 04:34; Start 06/18/17 at 04:15; Stop 06/18/17 at 04:20; Status DC Lorazepam (Ativan) 1 mg 1X ONCE PO Last administered on 06/18/17at 04:34; Start 06/18/17 at 04:15; Stop 06/18/17 at 04:20; Status DC Olanzapine (ZyPREXA ZYDIS) 5 mg PRN Q2HR PRN PO ANXIETY / AGITATION Last administered on 06/25/17at 08:02; Start 06/18/17 at 04:15; Stop 06/28/17 at 13:27; Status DC Haloperidol (Haldol) 2 mg 1X ONCE PO Last administered on 06/19/17at 09:58; Start 06/19/17 at 10:00; Stop 06/19/17 at 10:01; Status DC Risperidone (RisperDAL) 0.5 mg BID92 PO Last administered on 06/28/17at 08:10; Start 06/19/17 at 14:00; Stop 06/28/17 at 13:27; Status DC Risperidone (RisperDAL) 2 mg HS PO Last administered on 06/27/17at 19:40; Start 06/19/17 at 21:00; Stop 06/28/17 at 13:27; Status DC Vitamin D (Vitamin D3) 50,000 unit WEEKLY PO Last administered on 06/26/17at 08: 31; Start 06/19/17 at 16:00; Stop 06/28/17 at 13:27; Status DC Oxcarbazepine (Trileptal) 600 mg DAILY PO Last administered on 06/28/17at 08:09 ; Start 06/21/17 at 09:00; Stop 06/28/17 at 13:27; Status DC Oxcarbazepine (Trileptal) 900 mg HS PO Last administered on 06/27/17at 19:40; Start 06/20/17 at 21:00; Stop 06/28/17 at 13:27; Status DC Fluvoxamine Maleate (Luvox) 25 mg QHS PO Last administered on 06/22/17at 20:14; Start 06/21/17 at 21:00; Stop 06/23/17 at 20:59; Status DC Fluvoxamine Maleate (Luvox) 50 mg QHS PO Last administered on 06/27/17at 19:39; Start 06/23/17 at 21:00; Stop 06/28/17 at 13:27; Status DC Haloperidol (Haldol) 3 mg BID@0700,1900 PO Last administered on 06/28/17at 06:23 ; Start 06/23/17 at 19:00; Stop 06/28/17 at 13:27; Status DC Magnesium Hydroxide (Milk Of Magnesia) 2,400 mg PRN DAILY PRN PO CONSTIPATION; Start 06/24/17 at 22:00; Stop 06/28/17 at 13:27; Status DC Active Scripts Active Reported Risperdal (Risperidone) 2 Mg Tablet 2 Mg PO HS Risperdal (Risperidone) 0.5 Mg Tablet 0.5 Mg PO BID92 Fluvoxamine Maleate 50 Mg Tablet 50 Mg PO HS Zyprexa (Olanzapine) 5 Mg Tablet 5 Mg PO PRN Q2HR PRN Magnesium Oxide 400 Mg Tablet 400 Mg PO DAILYBFRLUN D3-50 (Cholecalciferol (Vitamin D3)) 50,000 Unit Capsule 50,000 Unit PO WEEKLY ON SATURDAY Docusate Sodium 100 Mg Capsule 100 Mg PO PRN Q12HR PRN Tylenol (Acetaminophen) 325 Mg Tablet 650 Mg PO PRN Q4HRS PRN Gabapentin 300 Mg Capsule 300 Mg PO TID Haloperidol 2 Mg Tablet 3 Mg PO BID@ 0700,1900 Oxcarbazepine 300 Mg Tablet 600 Mg PO DAILY Oxcarbazepine 600 Mg Tablet 900 Mg PO QHS I have reviewed the current psychotropics carefully including drug interactions. Risk benefit ratio favors no change other than as noted in my dictated progress note. Diagnosis: Problems: (1) Schizophrenia, disorganized, subchronic with acute exacerbation (2) Schizoaffective disorder, chronic condition with acute exacerbation (3) Bipolar affective, mixed, sev w/ psych (4) Impulse control disorder (5) Hepatitis C ERICKA RECINOS MD Jun 28, 2017 18:01
--- NOTE | 2017-06-30 23:45 | PN ---
DATE: 06/26/2017 PSYCHIATRIC PROGRESS NOTE\ This late entry 06/26/2017, covers elements not covered in my initial note 06/26/2017. I met with the patient evening of 06/26/2017. SUBJECTIVE: The patient was also reviewed with Dr. Doss from his insurance company. Slept reasonably previous evening, compliant with medications, slept after lunch, had a shower, was not aggressive. No PRNs were used. At 3 ice creams per nursing report. REVIEW OF SYSTEMS: Movement disorder consistent with [place]'s. No CV, , pulmonary, eye, ENT systems on review. Reliability poor. MENTAL STATUS EXAM: Oriented to himself. Insight, judgment, recent memory is impaired. Language function intact. Mood and affect remains labile. He is still psychotic, but improved, not aggressive, which was evident the day before. LABORATORY DATA: Reviewed. IMPRESSION: 1. Schizoaffective disorder, bipolar type, mixed with psychotic features. 2. Major neurocognitive disorder secondary to [place]'s with delusion, depression. Rest unchanged. PLAN: Continue psychotropics mentioned in my initial note. MAN Snow RECINOS MD DR: AMEE/tunde JOB#: [id number] / [id number]
--- NOTE | 2017-06-30 23:51 | PN ---
DATE: 06/27/2017 PSYCHIATRY PROGRESS NOTE This late entry 06/27/2017 covers elements not covered in my initial note 06/27/2017. SUBJECTIVE: The patient was staffed at treatment team meeting with the entire team morning of 06/27/2017 and seen individually after that. Appetite 80%. Sleeping average 8 hours, slept 9 hours previous evening. More compliant with meds and ____. Still somewhat intermittently psychotic with his Hadley's movements, but not aggressive. Slept after his medication, somewhat withdrawn. REVIEW OF SYSTEMS: Positive for Mary's movements. No CV, , pulmonary, eye, ENT system symptoms on review. MENTAL STATUS EXAM: Oriented to himself and situation. Speech, often responses monosyllabic. Abstraction fair. Computation impaired. Language function intact. Mood and affect somewhat withdrawn. LABORATORY DATA: Reviewed. IMPRESSION: Unchanged from initial note: 1. Schizoaffective disorder, bipolar type, mixed with psychotic features. 2. 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 PLAN: Continue psychotropics mentioned in my initial note. MAN Snow RECINOS MD DR: AMEE/tunde JOB#: [id number] / [id number]
--- NOTE | 2017-07-01 02:06 | DS ---
DATE OF DISCHARGE: 06/28/2017 This note covers elements not covered in my initial note 06/28/2017. 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 He is also hep C positive. He had failed outpatient psychiatric interventions. SIGNIFICANT FINDINGS AND CLINICAL COURSE: Following admission, the patient was seen daily individually by myself, followed medically per Dr. Herzog/Dr. Robertson. He was extremely paranoid, aggressive and disruptive with significant Mary's movements, which made him appear even more aggressive than he is without it. Adjustments were made in his psychotropics. He seemed to respond to a combination of Trileptal 600 mg a.m. and 900 at bedtime; Risperdal 0.5 mg b.i.d., 2 mg at bedtime; Haldol 3 mg b.i.d. for his Brentwood's; Neurontin 300 mg t.i.d.; Zyprexa p.r.n.; Luvox 50 mg at bedtime. At the time of discharge, the patient was on two antipsychotics, Haldol for his Mary's and Risperdal for his psychotic symptoms, which were not adequately controlled on the Haldol. We had considered tetrabenazine for his Brentwood's, but this was not available. Going forward, the plan would be if the patient is stable at the end of 60 days on a combination of the Haldol and Risperdal, then the Risperdal could be reduced by 0.25 mg daily every 30 days until it is discontinued to leave him on just one antipsychotic Haldol, but I will have to defer this to his treating provider of the time. CONDITION AT DISCHARGE: Improved. FINAL DIAGNOSES: Schizoaffective disorder, bipolar type, mixed with psychotic features, in partial remission; major neurocognitive disorder secondary to Brentwood's with delusion; depression; behavioral disturbance; anxiety disorder, unspecified; impulse control disorder, unspecified and hepatitis C. Rest of the diagnosis is unchanged from admission. DISCHARGE MEDICATIONS: Please refer to the [facility]. DISCHARGE INSTRUCTIONS: Outpatient psychiatric and medical followup at the [facility]. Time for discharge day management greater than 30 minutes. MAN Snow RECINOS MD DR: Brenda JOB#: [id number] / [id number]
== END 2017-06-28 12:15 | disposition home or self-care (01) | DRG 885 ==
LOC: EEVIPCON → GEROPSY 16:35
PROVIDERS: ADMIT Psychiatry & Neurology Psychiatry; ATTEND Psychiatry & Neurology Psychiatry
DX: F25.0 Schizoaffective disorder, bipolar type (principal); G10 Huntington's disease; F01.51 Vascular dementia, unspecified severity, with behavioral disturbance; E83.42 Hypomagnesemia; K31.84 Gastroparesis; F02.81 Dementia in other diseases classified elsewhere, unspecified severity, with behavioral disturbance; F23 Brief psychotic disorder; F42.9 Obsessive-compulsive disorder, unspecified; F41.9 Anxiety disorder, unspecified; F63.9 Impulse disorder, unspecified; G89.29 Other chronic pain; K21.9 Gastro-esophageal reflux disease without esophagitis; K59.00 Constipation, unspecified; M54.5 Low back pain; R79.89 Other specified abnormal findings of blood chemistry; B19.20 Unspecified viral hepatitis C without hepatic coma; Z79.899 Other long term (current) drug therapy
CPT/HCPCS: 36415; 80053; 80061; 81001; 82306; 82607; 83036; 83540; 83550; 83735; 84436; 84443; 84480; 85025; 86593; 93005; 92610